=== PATIENT | female | born 1955 | race Caucasian/White ===

== ENCOUNTER → 2019-07-23 13:24 | Outpatient (BNVA) | payer MEDICARE, MEDICAID, SELFPAY | PROVIDERS: Visit Provider Nurse Practitioner Family | DX: E55.9 Vitamin D deficiency, unspecified (principal); R25.2 Cramp and spasm; I10 Essential (primary) hypertension; E11.9 Type 2 diabetes mellitus without complications; R07.9 Chest pain, unspecified; M79.672 Pain in left foot; L84 Corns and callosities; F41.8 Other specified anxiety disorders; E66.9 Obesity, unspecified; F17.200 Nicotine dependence, unspecified, uncomplicated | CPT/HCPCS: 80053; 80061; 82044; 82306; 83036; 83735; 85025 ==

== ENCOUNTER → 2019-11-22 12:30 | Outpatient (BNVA) | payer MEDICARE, MEDICAID, SELFPAY | PROVIDERS: Visit Provider Nurse Practitioner Family | DX: E11.9 Type 2 diabetes mellitus without complications (principal); I10 Essential (primary) hypertension; R10.11 Right upper quadrant pain | CPT/HCPCS: 80053; 80061; 83036; 84443; 85025 ==

== ENCOUNTER → 2019-12-02 13:42 | Outpatient (BNVA) | payer MEDICARE, MEDICAID, SELFPAY | PROVIDERS: PCP Nurse Practitioner Family; Visit Provider Nurse Practitioner Family | DX: R19.5 Other fecal abnormalities (principal) | CPT/HCPCS: 82270 ==

== ENCOUNTER → 2019-12-16 13:20 | Outpatient (BNVA) | payer MEDICARE, MEDICAID, SELFPAY | PROVIDERS: PCP Nurse Practitioner Family; Visit Provider Nurse Practitioner Family | DX: R10.32 Left lower quadrant pain (principal) | CPT/HCPCS: 87506 ==

== ENCOUNTER 2019-12-27 10:19 | Outpatient (CLI) | payer MEDICARE, MEDICAID, SELFPAY ==
--- NOTE | 2019-12-27 10:15 | US_ITS ---
WS: [id number] ULTRASOUND ABDOMEN CLINICAL INFORMATION: generalized abd pain; worse RUQ COMPARISON: None. FINDINGS: Liver Size: Normal. Craniocaudal length: 13.6 cm. Echogenicity: Coarse Surface nodularity: None. Mass (size and location): None. Bile ducts Intrahepatic ducts: Normal. Common bile duct diameter: 0.6 cm. Gallbladder Gallstones Gallstones: Present Gallbladder sludge: None. Gallbladder wall thickening: None. Pericholecystic fluid: None. Sonographic Everett sign: Absent. Pancreas Normal as visualized. Spleen Splenomegaly: None. Craniocaudal length: 11.0 cm. Right kidney: Normal. Hydronephrosis: None. Size: 10.7 cm x 5.2 cm x 5.7 cm Left kidney: Normal. Hydronephrosis: None. Size: 11.3 cm x 5.4 cm x 5.6 cm. Abdominal aorta and IVC Visualized portions are normal. Ascites: None. US/US abdomen complete* [id number] IMPRESSION: 1. Mild diffuse fatty infiltration liver. 2. Cholelithiasis. No gallbladder wall thickening or pericholecystic fluid. 3. Normal common bile duct. 4. No hydronephrosis in either kidney.
== END 2019-12-27 10:20 | disposition home or self-care (01) ==
LOC: RAD 10:24
PROVIDERS: PCP Nurse Practitioner Family; Visit Provider Nurse Practitioner Family
DX: R10.11 Right upper quadrant pain (principal); K76.0 Fatty (change of) liver, not elsewhere classified; K80.20 Calculus of gallbladder without cholecystitis without obstruction
CPT/HCPCS: 76700

== ENCOUNTER 2020-01-07 08:58 | Outpatient (CLI) | payer MEDICARE, MEDICAID, SELFPAY ==
--- NOTE | 2020-01-07 09:05 | NM_ITS ---
WS: [id number] NUCLEAR MEDICINE HIDA SCAN WITH GALLBLADDER EJECTION FRACTION HISTORY: abdominal pain COMPARISON: None available. TECHNIQUE: The patient was intravenously injected with 8.1 mCi of TC99m Mebrofenin. Immediate imaging over the right upper quadrant was followed by 5 minute image and additional images for a total of 60 minutes. Normal uptake of radiotracer throughout the liver. Activity identified in the gallbladder at 20 minutes and well distended by 60 minutes. Activity in the proximal small bowel was seen by 40 minutes. Good washout of the radiotracer from the liver by 60 minutes. The patient then drank 8 ounces of Ensure Plus. Ejection fraction at 60 minutes was 75%. Normal GB ej ection fraction is 35-75%. Post fatty meal symptoms: None. NM/NM hepatobiliary w phar* [id number] IMPRESSION: 1. Normal HIDA scan. 2. Normal gallbladder ejection fraction.
== END 2020-01-07 08:59 | disposition home or self-care (01) ==
LOC: RAD 09:02
PROVIDERS: PCP Nurse Practitioner Family; Visit Provider Nurse Practitioner Family
DX: R10.9 Unspecified abdominal pain (principal)
CPT/HCPCS: 78227; A9537

== ENCOUNTER → 2020-02-16 09:15 | Outpatient (BNVA) | payer MEDICARE, MEDICAID, SELFPAY | PROVIDERS: PCP Nurse Practitioner Family; Visit Provider Nurse Practitioner Family | DX: E11.9 Type 2 diabetes mellitus without complications (principal); R25.2 Cramp and spasm; I10 Essential (primary) hypertension; E55.9 Vitamin D deficiency, unspecified | CPT/HCPCS: 80053; 80061; 82306; 82607; 83036; 83735; 84443; 85025 ==

== ENCOUNTER → 2020-04-10 15:34 | Outpatient (BNVA) | payer MEDICARE, MEDICAID, SELFPAY | PROVIDERS: PCP Nurse Practitioner Family; Visit Provider Surgery | DX: Z11.59 Encounter for screening for other viral diseases (principal); R10.9 Unspecified abdominal pain; K92.1 Melena | CPT/HCPCS: 87635 ==

== ENCOUNTER 2020-04-13 08:00 | Day surgery (SDC) | payer MEDICARE, MEDICAID, SELFPAY ==
[2020-04-11 13:03] VITALS: BMI 51.7
--- NOTE | 2020-04-13 08:06 | W.PM.OPSUD ---
Surgery/Procedure H&P Update DATE OF PROCEDURE: April 13, 2020 DATE H&P PERFORMED: 03/28/20 H&P UPDATE INFORMATION: I have reviewed H&P completed within last 30 days, I have examined patient prior to procedure and No changes to prior documentation PLANNED PROCEDURE: Operation Date: 04/13/20 09:00 Proposed Procedures p EGD/Colon 61725 20593 K92.2(Not Applicable) - Madhav Billingsley MD s Colonoscopy(Not Applicable) - Madhav Billingsley MD
[2020-04-13 08:19] VITALS: BP 151/70; PULSE 49; RESP 18; TEMP 36.6; O2SAT 94
--- NOTE | 2020-04-13 08:27 | ECG_ITS ---
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 Measurements Intervals [place] Rate: 46 P: OK: -1 QRS: 25 QRSD: 94 T: 35 QT: 443 QTc: 387 Interpretive Statements SINUS BRADYCARDIA LOW QRS VOLTAGE IN PRECORDIAL LEADS [QRS DEFLECTION < 1.0 mV IN CHEST LEADS] No previous ECG available for comparison Electronically Signed On 04-14-2020 20:07:43 PILOT SUBMERSIBLE by Krystian Guerrier M.D. [id number]
--- NOTE | 2020-04-13 08:33 | P.ANESASSM_ITS ---
Pre-Anesthetic Assessment Pre-Anesthetic Assessment: Height/Weight: Height 1.57 m Weight 128.367 kg Temp Pulse Resp BP Pulse Ox 97.9 F 49 L 18 151/70 94 04/13/20 08:19 04/13/20 08:19 04/13/20 08:19 04/13/20 08:19 04/13/20 08:19 Preop Diagnosis: llq pain Proposed Procedure: Operation Date: 04/13/20 09:00 Proposed Procedures p EGD/Colon 54293 08991 K92.2(Not Applicable) - aMdhav Billingsley MD s Colonoscopy(Not Applicable) - Madhav Billingsley MD Familial anesthetic complications: None Was Beta Tatianna taken within 24 hours: N/A Last intake: Intake Last Liquid Date 04/12/20 Last Liquid Time 17:00 Last Solid Date 04/11/20 Last Solid Time 16:00 Social: Social History: Tobacco and No alcohol Exam: Pre-Anes Outpt Exam: alert, oriented x 3, clear to auscultation bilaterally and regular rate & rhythm Airway: Cervical ROM: WNL MP: 2 Dentition: False Pulmonary: Pulmonary: COPD CV/HEM: CV/HEM: Angina (Stable) and HTN Comments: Slow HR, takes metoprolol, states she has no symptoms like dizziness, syncope, sob, no hypotension Metabolic: Metabolic: DM, Hyperlipidemia and Morbid obesity Anesthetic Plan: ASA status: 3 Anesthesia: MAC Risk of > 500 ml blood loss (7ml/kg in children): No PFSH Anesthesia PFSH: Medical History (Updated 03/28/20 @ 17:35 by Madhav Billingsley MD) Anxiety with depression Cholelithiasis Chronic knee pain COPD (chronic obstructive pulmonary disease) GERD (gastroesophageal reflux disease) Hypertension Obesity Osteoarthritis Vitamin D deficiency Surgical History Hx of tubal ligation Family History Family/Other Diabetes Mother Cancer Father Suicide Denies family history of Anesthesia complication Bleeding disorder Social History Smoking and tobacco status: current every day smoker cigarettes Packs smoked per day: 2 Years cigarettes smoked: 42 [ Other cigarette details: started s moking at age 11 ] Alcohol intake: current Alcohol intake frequency: 0-2 Drinks per Day Lives independently: Yes Household members: none Marital status: Single Current occupational status: disabled History of recent travel: No Current gender identity: Female Data Anesthesia Cardiac Studies: No Data to Display
--- NOTE | 2020-04-13 08:40 | P.ANESASSM_ITS ---
Pre-Anesthetic Assessment Pre-Anesthetic Assessment: Height/Weight: Height 1.57 m Weight 128.367 kg Temp Pulse Resp BP Pulse Ox 97.9 F 49 L 18 151/70 94 04/13/20 08:19 04/13/20 08:19 04/13/20 08:19 04/13/20 08:19 04/13/20 08:19 Preop Diagnosis: llq pain Proposed Procedure: Operation Date: 04/13/20 09:00 Proposed Procedures p EGD/Colon 45042 87883 K92.2(Not Applicable) - Madhav Billingsley MD s Colonoscopy(Not Applicable) - Madhav Billingsley MD Familial anesthetic complications: None Was Beta Tatianna taken within 24 hours: Yes Last intake: Intake Last Liquid Date 04/12/20 Last Liquid Time 17:00 Last Solid Date 04/11/20 Last Solid Time 16:00 Social: Social History: Tobacco and No alcohol Exam: Pre-Anes Outpt Exam: alert, oriented x 3, clear to auscultation bilaterally and regular rate & rhythm Airway: Cervical ROM: WNL MP: 2 Dentition: False Pulmonary: Pulmonary: COPD CV/HEM: CV/HEM: HTN Comments: bradycardia, takes metoprolol, states she has no symptoms GI: GI: GERD Metabolic: Metabolic: DM, Hyperlipidemia and Morbid obesity Anesthetic Plan: ASA status: 3 Anesthesia: MAC Risk of > 500 ml blood loss (7ml/kg in children): No PFSH Anesthesia PFSH: Medical History (Updated 03/28/20 @ 17:35 by Madhav Billingsley MD) Anxiety with depression Cholelithiasis Chronic knee pain COPD (chronic obstructive pulmonary disease) GERD (gastroesophageal reflux disease) Hypertension Obesity Osteoarthritis Vitamin D deficiency Surgical History Hx of tubal ligation Family History Family/Other Diabetes Mother Cancer Father Suicide Denies family history of Anesthesia complication Bleeding disorder Social History Smoking and tobacco status: current every day smoker cigarettes Packs smoked per day: 2 Years cigarettes smoked: 42 [ Other cigarette details: started smo tati at age 11 ] Alcohol intake: current Alcohol intake frequency: 0-2 Drinks per Day Lives independently: Yes Household members: none Marital status: Single Current occupational status: disabled History of recent travel: No Current gender identity: Female Data Anesthesia Cardiac Studies: No Data to Display
[2020-04-13] MEDS: sodium chloride 0.9% 1,000 ML 30 ML IV (09:07)
[2020-04-13 09:08] LABS: Glucose Point of Care 122 mg/dL (70-110)
[2020-04-13 09:44] VITALS: BP 148/95; PULSE 77; RESP 18; TEMP 36.4; O2SAT 92
--- NOTE | 2020-04-13 20:14 | ANE.PACU2 ---
Inpatient post-anesthesia follow up: Airway intact: Yes Vital signs: Temperature 97.6 F Pulse Rate 77 Respiratory Rate 18 Blood Pressure 148/95 Pulse Oximetry 92 Oxygen Delivery Me thod Room Air Oxygen Flow Rate Fraction of Inspir ed Oxygen Hydration adequate: Yes Nausea and vomiting: No Pain level: 2 Mental status: Baseline
== END 2020-04-13 10:17 | disposition home or self-care (01) ==
PROVIDERS: PCP Nurse Practitioner Family; Visit Provider Surgery
PROC: 0DJ08ZZ Inspection of Upper Intestinal Tract, Via Natural or Artificial Opening Endoscopic (ICD-10-PCS; CPT 43235; principal; 2020-04-13 09:00)
PROC: 0DJD8ZZ Inspection of Lower Intestinal Tract, Via Natural or Artificial Opening Endoscopic (ICD-10-PCS; CPT 45378; 2020-04-13 09:00)
DX: R10.32 Left lower quadrant pain (principal); K31.9 Disease of stomach and duodenum, unspecified; D12.4 Benign neoplasm of descending colon; D12.3 Benign neoplasm of transverse colon; K62.1 Rectal polyp; K57.30 Diverticulosis of large intestine without perforation or abscess without bleeding; K64.8 Other hemorrhoids; K29.70 Gastritis, unspecified, without bleeding; J44.9 Chronic obstructive pulmonary disease, unspecified; I10 Essential (primary) hypertension; R00.1 Bradycardia, unspecified; E11.8 Type 2 diabetes mellitus with unspecified complications; E78.5 Hyperlipidemia, unspecified; E66.01 Morbid (severe) obesity due to excess calories; Z68.43 Body mass index [BMI] 50.0-59.9, adult; F17.210 Nicotine dependence, cigarettes, uncomplicated; Z80.9 Family history of malignant neoplasm, unspecified; K21.9 Gastro-esophageal reflux disease without esophagitis; Z79.84 Long term (current) use of oral hypoglycemic drugs; E55.9 Vitamin D deficiency, unspecified; F41.8 Other specified anxiety disorders; K80.20 Calculus of gallbladder without cholecystitis without obstruction
CPT/HCPCS: 12345; 36416; 43239; 45380; 45385; 82962; 88305; 93005; J2704; J3490; J7030

== ENCOUNTER → 2020-08-30 11:40 | Outpatient (BNVA) | payer MEDICARE, MEDICAID, SELFPAY | PROVIDERS: PCP Nurse Practitioner Family; Visit Provider Nurse Practitioner Family | DX: E55.9 Vitamin D deficiency, unspecified (principal); E11.9 Type 2 diabetes mellitus without complications | CPT/HCPCS: 80053; 80061; 82306; 82607; 83036; 83735; 84443; 85025 ==

== ENCOUNTER → 2020-08-31 16:29 | Outpatient (BNVA) | payer MEDICARE, MEDICAID, SELFPAY | PROVIDERS: PCP Nurse Practitioner Family; Visit Provider Nurse Practitioner Family | DX: E11.9 Type 2 diabetes mellitus without complications (principal) | CPT/HCPCS: 82043 ==

== ENCOUNTER 2020-11-24 14:14 | Observation (INO) | payer MEDICARE, MEDICAID, SELFPAY ==
[2020-11-24] VITALS (11 sets, daily range): BP systolic 122–154; BP diastolic 60–88; PULSE 71–104; RESP 16–20; TEMP 36.4–36.9; O2SAT 90–98; BMI 50.5
--- NOTE | 2020-11-24 14:56 | XR_ITS ---
WS: [id number] Portable AP upright chest, 11/24/2020 Clinical Data: SOB Comparison: Portable chest, 06/30/2014. Findings: No nodules, masses or effusions are seen. The heart is normal. The pulmonary vascularity is not increased. No pneumonia or pneumothorax is seen. The aortic arch shows mild tortuosity. Monitor leads are on the chest wall. XR/XR chest 1V portable [id number] Impression: Atherosclerosis.
[2020-11-24 15:24] LABS: Basophils % 0.5 %; Eosinophils % 0.2 %; Hematocrit 46.9 % (37.0-47.0); Hemoglobin 15.9 g/dL (11.5-15.3); Lymphocytes # 1.5 10^3/uL (0.8-4.8); Lymphocytes % 16.5 %; Mean Corpuscular HGB Conc 33.9 g/dL (30.0-36.0); Mean Corpuscular Hemoglobin 32.4 pg (28.0-34.0); Mean Corpuscular Volume 95.7 fL (81-99); Mean Platelet Volume 9.4 fL (7.4-10.4); Monocytes # 0.8 10^3/uL (0.2-0.9); Monocytes % 8.7 %; Neutrophils # 6.51 10^3/uL (1.8-7.7); Neutrophils % 73.5 %; Nucleated Red Blood Cells % 0 %; Platelet Count 235 10^3/cmm (130-400); Red Cell Distribution Width 12.4 % (12.1-15.1); White Blood Count 8.9 10^3/uL (4.0-10.0)
[2020-11-24 15:32] LABS: Lactic Sepsis W/Reflex 1.6 mmol/L (0.5-2.2)
[2020-11-24 15:40] LABS: D Dimer <= 0.27 ug/mIFEU (0-0.59)
[2020-11-24 15:41] LABS: Alanine Aminotransferase 16 U/L (0-33); Albumin Level 4.2 g/dL (3.5-5.2); Alkaline Phosphatase 83 IU/L (35-105); Anion Gap 17.7 (5-19); Aspartate Amino Transferase 16 U/L (0-32); Blood Urea Nitrogen 12 mg/dL (8-23); Calcium 9.4 mg/dL (8.5-10.5); Carbon Dioxide 26 mmol/L (22-29); Chloride 90 mmol/L (98-107); Globulin 3.3 g/dL (1.3-4.6); Glucose 152 mg/dL (65-115); NT Pro B Type Natriuretic Pept 227 pg/mL (0-125); Osmolality Calculated 273 mOsm/kg (285-295); Potassium 3.7 mmol/L (3.5-5.1); Sodium 130 mmol/L (136-145); Total Bilirubin 0.3 mg/dL (0.15-1.2); Total Protein 7.5 g/dL (6.6-8.7)
[2020-11-24] MEDS: ipratropium-albuterol 3 mL Neb INHALATION ×2 (16:05→21:15)
[2020-11-24 16:18] LABS: Influenza A by IFA Negative (Negative); Influenza B by IFA Negative (Negative); SARS Covid-2 Antigen Negative (Negative)
[2020-11-24 16:23] LABS: ABG PCO2 44.2 mmHg (35-45); Arterial Blood Gas Hematocrit 50.4 % (37-47); Blood Gas Allen Test Pos; Blood Gas Operator Identificat ED; Blood Gas Sample Site Radial, right; Blood Gas Sample Type Arterial; HCO3 ABG 27.4 mmol/L (22-26); Oxygen Device NC; PO2 ABG 60.5 mmHg (80.0-100.0)
--- NOTE | 2020-11-24 17:11 | CTR_ITS ---
PROCEDURE INFORMATION: Exam: CTA Chest With Contrast Exam date and time: 11/24/2020 5:11 PM Age: 65 years old Clinical indication: Cough and shortness of breath; Cough with hemorrhage; Patient HX: SOB and coughing p blood; Additional info: Hemoptysis TECHNIQUE: Imaging protocol: Computed tomographic angiography of the chest with contrast. 3D rendering (Not supervised by radiologist): MIP and/or 3D reconstructed images were created by the technologist. Total images: 879 Radiation optimization: All CT scans at this facility use at least one of these dose optimization techniques: automated exposure control; mA and/or kV adjustment per patient size (includes targeted exams where dose is matched to clinical indication); or iterative reconstruction. Contrast material: OMNI 350; Contrast volume: 66 ml; Contrast route: INTRAVENOUS (IV); COMPARISON: CR XR chest 1V portable [id number] 11/24/2020 3:05 PM RADIATION DOSE METRICS: Total DLP (mGy-cm): 549.76 FINDINGS: Pulmonary arteries: No visible evidence of pulmonary embolism/pulmonary arterial thrombus. Aorta: The thoracic aorta is nonaneurysmal. No visible intimal flap or dissection. Mild arteriosclerosis. Bovine aortic arch which is a normal anatomical variant. Lungs: No visible active interstitial or alveolar airspace disease. Minimal parenchymal scarring left lower lobe. Pleural spaces: Unremarkable. No pneumothorax. No pleural effusion. Heart: Coronary artery disease. No cardiomegaly. No visible pericardial effusion. Lymph nodes: No visible active mediastinal or hilar lymphadenopathy. Bones/joints: No visible active or acute osseous pathology. Degenerative disease and degenerative disc disease of the spine with spondylosis deformans. Soft tissues: Unremarkable. Other findings: Marked obesity. Increased quantum mottle artifact which degrades image quality in detail assessment. CT/CT angio chest PE protcl [id number] IMPRESSION: 1. No visible evidence of pulmonary embolism/pulmonary arterial thrombus. 2. Coronary artery disease. Radiation Dose CTDIVOL = (mGy): DLP = 549.76 (mGy-cm)
[2020-11-24] MEDS: levofloxacin-dextrose 5 % 750 MG/150 ML PREMIX 100 MG IV (17:17)
--- NOTE | 2020-11-24 17:30 | ED_ITS ---
HPI - SOB/Dyspnea General: Chief Complaint: Shortness of Breath/Dyspnea Stated Complaint: sob/ coughing blood Time Seen by Provider: 11/24/20 14:27 Source: patient Mode of arrival: EMS Limitations: no limitations History of Present Illness: HPI Narrative: Patient is a 65-year-old female with a history of COPD who currently still smokes 2 packs of cigarettes daily. She presents to the emergency department with cough and shortness of breath that has been ongoing for about 3 days. Today when she coughed she noticed blood in her sputum and so her family was concerned and asked her to come into the emergency department to be seen. She states that several people in her family have had bronchitis and she thinks that is what is going on with her. She had a low-grade fever at home. No nausea or vomiting. No chest pain. No dizziness. She does feel some rattling in her lungs. MD elicited complaint: shortness of breath and cough Pertinent past history: COPD Onset (ago): day(s) (3) Timing: constant Severity: moderate Exacerbating factors: nothing Relieving factors: oxygen Known history of: COPD Associated symptoms: Reports chest congestion and cough; Deny abdominal pain, chest pain, diaphoresis, dizziness, extremity pain, hemoptysis, lightheadedness, myalgias, nausea, orthopnea, palpitations, paresthesias, polydipsia, polyuria, rash, sense of impending doom, syncope or vomiting Treatment prior to arrival: oxygen Review of Systems General: Reports: 10 or more systems reviewed and unremarkable except in HPI and below Const: Denies: diaphoresis Card: Denies: chest pain, palpitations, lightheadedness, syncope or orthopnea Resp: Reports: chest congestion; Denies: hemoptysis GI: Denies: abdominal pain, nausea or vomiting Musc: Denies: extremity pain Neuro: Denies: dizziness Endo: Denies: polyuria or polydipsia PFSH ED PFSH: Medical History (Reviewed 11/24/20 @ 23:56 by Rosalind Santos MD, [facility] [place] Anxiety with depression Cholelithiasis Chronic knee pain COPD (chronic obstructive pulmonary disease) GERD (gastroesophageal reflux disease) Hypertension Obesity Osteoarthritis Vitamin D deficiency Surgical History (Reviewed 11/24/20 @ 23:56 by Rosalind Santos MD, [facility] [place]) H/O esophagogastroduodenoscopy (04/13/20) Hx of tubal ligation Status post colonoscopy with polypectomy repeat due 04/2025 Family History (Reviewed 11/24/20 @ 23:56 by Rosalind Santos MD, [facility] [place]) Family/Other Diabetes Mother Cancer Father Suicide Denies family history of Anesthesia complication Bleeding disorder Social History (Reviewed 11/24/20 @ 23:56 by Rosalind Santos MD, [facility] [place]) Smoking and tobacco status: current every day smoker cigarettes Packs smoked per day: 2 Years cigarettes smoked: 42 [ Other cigarette details: started smoking at age 11 ] Alcohol intake: current Alcohol intake frequency: 0-2 Drinks per Day Lives independently: Yes Household members: none Marital status: Single Current occupational status: disabled History of recent travel: No Current gender identity: Female Physical Exam Const: COMMON NORMALS: no acute distress, average body habitus, patient oriented x3, no limitations, healthy appearing, alert and well nourished HENMT: COMMON NORMALS: normocephalic, atraumatic and moist oral mucous membranes HEAD & SCALP: normocephalic and atraumatic Neck/C-Spine: COMMON NORMALS: no meningeal signs and no JVD Resp: COMMON NORMALS: normal respiratory effort, No retractions, No use of accessory muscles and percussion normal AUSCULTATION: rhonchi, wheezes and diminished lung sounds PERCUSSION: percussion normal Cardio: COMMON NORMALS: no JVD, regular rate, regular rhythm, S1 normal heart sound present, S2 normal heart sound present, No gallops present (Cardio), No clicks present (Cardio), No murmurs present (Cardio), No rub (Cardio) and Peripheral pulses 2+ throughout RATE: regular rate RHYTHM: regular rhythm HEART SOUNDS: S1 normal heart sound present and S2 normal heart sound present PERIPHERAL PULSES: Peripheral pulses 2+ throughout GI: COMMON NORMALS: Normal to inspection, nondistended, normoactive bowel sounds present, Soft to palpation, non-tender, No hepatosplenomegaly present, no masses and no bruits PALPATION: Yes Soft to palpation and Yes No hepatosplenomegaly present Extremity: COMMON NORMALS: normal to inspection, full ROM, capillary refill normal, no calf tenderness and no pedal edema Neuro: COMMON NORMALS: patient oriented x3 SENSORIUM/ORIENTATION: Yes alert MENINGEAL SIGNS: Yes no meningeal signs Procedures EJ/Peripheral Line Arm L: Time Out Performed: Yes Skin Cleansed in Sterile Fashion: Yes Size (gauge): 20 IV Secured and Dressing Applied: Yes Patient Tolerated Procedure: well Additional Comments: Nursing staff had difficulty placing an IV in this patient. I performed an ultrasound-guided peripheral IV placed a 20-gauge in her left AC space. Course Reevaluation(s): Reevaluation #1: Discussed her lab and imaging findings with her. Explained that she will likely benefit from hospital admission since she is requiring oxygen and has never needed oxygen before. She will be managed as a case of COPD exacerbation. She voiced understanding and is in agreement with the plan. Time: 16:20 Consultations: Consultation #1: Discussed the patient with Dr. Mathur, hospitalist and he kindly accepted the patient to his service. Time: 16:25 Vital Signs: Vital signs: Vital Signs Temperature 98.4 F 11/24/20 23:45 Pulse Rate 80 11/24/20 23:45 Respiratory Rate 18 11/24/20 23:45 Blood Pressure 154/83 11/24/20 23:45 Pulse Oximetry 95 11/24/20 23:45 MDM - SOB/Dyspnea MDM Narrative: Medical decision making narrative: 65-year-old female patient who presents to the emergency department with signs and symptoms consistent with a COPD exacerbation. She was hypoxic and required oxygen to maintain her saturations. She is admitted to the hospital service for further evaluation and management. Medical Records: Attestation: I reviewed the patient's medical records. Lab Data: Attestation: I reviewed the patient's lab results. Labs: Lab Results 11/24/20 11/24/20 11/24/20 Range/Units 15:00 15:00 15:05 WBC 8.9 (4.0-10.0) 10^3/ uL RBC 4.90 (4.1-5.3) 10^6/u L Hgb 15.9 H (11.5-15.3) g/dL Hct 46.9 (37.0-47.0) % MCV 95.7 (81-99) fL MCH 32.4 (28.0-34.0) pg MCHC 33.9 (30.0-36.0) g/dL RDW 12.4 (12.1-15.1) % Plt Count 235 (130-400) 10^3/c mm MPV 9.4 (7.4-10.4) fL Neut % (Auto) 73.5 % Lymph % (Auto) 16.5 % [place] % (Auto) 8.7 % Eos % (Auto) 0.2 % Baso % (Auto) 0.5 % Neut # (Auto) 6.51 (1.8-7.7) 10^3/u L Lymph # (Auto) 1.5 (0.8-4.8) 10^3/u L [place] # (Auto) 0.8 (0.2-0.9) 10^3/u L Eos # (Auto) 0.0 (0.0-0.8) 10^3/u L Baso # (Auto) 0.0 (0.0-0.1) 10^3/u L Nucleated RBC % (a uto) 0 % Nucleated RBCs # 0.0 /100WBC D-Dimer (0-0.59) ug/mIFE U Specimen Type Sample Site ABG pH (7.35-7.45) ABG pCO2 (35-45) mmHg ABG pO2 (80.0-100.0) mmH g ABG HCO3 (22-26) mmol/L ABG Base Excess (-2.0-2.0) mmol/ L Jono Test Hematocrit (37-47) % O2 Delivery Device O2 Liters/Min % FiO2 % Pathology Laboratory Aides Teacher ID Sodium (136-145) mmol/L Potassium (3.5-5.1) mmol/L Chloride (98-107) mmol/L Carbon Dioxide (22-29) mmol/L Anion Gap (5-19) BUN (8-23) mg/dL Creatinine (0.5-0.9) mg/dL GFR Calculation (90-130) mL/min Glucose (65-115) mg/dL Calculated Osmolal ity (285-295) mOsm/k g Lactic Acid (0.5-2.2) mmol/L Calcium (8.5-10.5) mg/dL Total Bilirubin (0.15-1.2) mg/dL AST (0-32) U/L ALT (0-33) U/L Alkaline Phosphata se (35-105) IU/L NT-Pro-B Natriuret Pep (0-125) pg/mL Total Protein (6.6-8.7) g/dL Albumin (3.5-5.2) g/dL Globulin (1.3-4.6) g/dL Influenza Type A A g Negative (Negative) Influenza Type B A g Negative (Negative) SARS-CoV-2 Ag (Rap id) Negative (Negative) 11/24/20 11/24/20 11/24/20 Range/Units 15:05 15:05 15:17 WBC (4.0-10.0) 10^3/ uL RBC (4.1-5.3) 10^6/u L Hgb (11.5-15.3) g/dL Hct (37.0-47.0) % MCV (81-99) fL MCH (28.0-34.0) pg MCHC (30.0-36.0) g/dL RDW (12.1-15.1) % Plt Count (130-400) 10^3/c mm MPV (7.4-10.4) fL Neut % (Auto) % Lymph % (Auto) % [place] % (Auto) % Eos % (Auto) % Baso % (Auto) % Neut # (Auto) (1.8-7.7) 10^3/u L Lymph # (Auto) (0.8-4.8) 10^3/u L [place] # (Auto) (0.2-0.9) 10^3/u L Eos # (Auto) (0.0-0.8) 10^3/u L Baso # (Auto) (0.0-0.1) 10^3/u L Nucleated RBC % (a uto) % Nucleated RBCs # /100WBC D-Dimer <= 0.27 (0-0.59) ug/mIFE U Specimen Type Sample Site ABG pH (7.35-7.45) ABG pCO2 (35-45) mmHg ABG pO2 (80.0-100.0) mmH g ABG HCO3 (22-26) mmol/L ABG Base Excess (-2.0-2.0) mmol/ L Jono Test Hematocrit (37-47) % O2 Delivery Device O2 Liters/Min % FiO2 % Pathology Laboratory Aides Teacher ID Sodium 130 L (136-145) mmol/L Potassium 3.7 (3.5-5.1) mmol/L Chloride 90 L (98-107) mmol/L Carbon Dioxide 26 (22-29) mmol/L Anion Gap 17.7 (5-19) BUN 12 (8-23) mg/dL Creatinine 0.6 (0.5-0.9) mg/dL GFR Calculation 100.0 (90-130) mL/min Glucose 152 H (65-115) mg/dL Calculated Osmolal ity 273 L (285-295) mOsm/k g Lactic Acid 1.6 (0.5-2.2) mmol/L Calcium 9.4 (8.5-10.5) mg/dL Total Bilirubin 0.3 (0.15-1.2) mg/dL AST 16 (0-32) U/L ALT 16 (0-33) U/L Alkaline Phosphata se 83 (35-105) IU/L NT-Pro-B Natriuret Pep 227 H (0-125) pg/mL Total Protein 7.5 (6.6-8.7) g/dL Albumin 4.2 (3.5-5.2) g/dL Globulin 3.3 (1.3-4.6) g/dL Influenza Type A A g (Negative) Influenza Type B A g (Negative) SARS-CoV-2 Ag (Rap id) (Negative) 11/24/20 Range/Units 16:13 WBC (4.0-10.0) 10^3/ uL RBC (4.1-5.3) 10^6/u L Hgb (11.5-15.3) g/dL Hct (37.0-47.0) % MCV (81-99) fL MCH (28.0-34.0) pg MCHC (30.0-36.0) g/dL RDW (12.1-15.1) % Plt Count (130-400) 10^3/c mm MPV (7.4-10.4) fL Neut % (Auto) % Lymph % (Auto) % [place] % (Auto) % Eos % (Auto) % Baso % (Auto) % Neut # (Auto) (1.8-7.7) 10^3/u L Lymph # (Auto) (0.8-4.8) 10^3/u L [place] # (Auto) (0.2-0.9) 10^3/u L Eos # (Auto) (0.0-0.8) 10^3/u L Baso # (Auto) (0.0-0.1) 10^3/u L Nucleated RBC % (a uto) % Nucleated RBCs # /100WBC D-Dimer (0-0.59) ug/mIFE U Specimen Type Arterial Sample Site Radial, right ABG pH 7.40 (7.35-7.45) ABG pCO2 44.2 (35-45) mmHg ABG pO2 60.5 L (80.0-100.0) mmH g ABG HCO3 27.4 H (22-26) mmol/L ABG Base Excess 2.0 (-2.0-2.0) mmol/ L Jono Test Pos Hematocrit 50.4 H (37-47) % O2 Delivery Device Nc O2 Liters/Min 2.0 % FiO2 28.0 % Pathology Laboratory Aides Teacher ID Ed Sodium (136-145) mmol/L Potassium (3.5-5.1) mmol/L Chloride (98-107) mmol/L Carbon Dioxide (22-29) mmol/L Anion Gap (5-19) BUN (8-23) mg/dL Creatinine (0.5-0.9) mg/dL GFR Calculation (90-130) mL/min Glucose (65-115) mg/dL Calculated Osmolal ity (285-295) mOsm/k g Lactic Acid (0.5-2.2) mmol/L Calcium (8.5-10.5) mg/dL Total Bilirubin (0.15-1.2) mg/dL AST (0-32) U/L ALT (0-33) U/L Alkaline Phosphata se (35-105) IU/L NT-Pro-B Natriuret Pep (0-125) pg/mL Total Protein (6.6-8.7) g/dL Albumin (3.5-5.2) g/dL Globulin (1.3-4.6) g/dL Influenza Type A A g (Negative) Influenza Type B A g (Negative) SARS-CoV-2 Ag (Rap id) (Negative) Imaging Data^: CTA Chest: Attestation: I personally reviewed and interpreted this imaging study as follows: Radiologist's impression: [facility] [facility], [place] [address]OV Scan ReportSigned Patient: Flavia Zaldivar #: [id number]: 5Acct#:[id number]/ Sex: 65 / FADM Date: 11/24/20Loc: [facility]/Bed: 262-1Attending Dr: Meri Mathur MD Ordering Provider/Ordering MD: Rosalind Santos MD, [facility] [place] Date of Service: 11/24/20 Procedure(s): CT angio chest PE protcl [id number] Accession Number(s): [id number] Report Number: [id number] PROCEDURE INFORMATION: Exam: CTA Chest With Contrast Exam date and time: 11/24/2020 5:11 PM Age: 65 years old Clinical indication: Cough and shortness of breath; Cough with hemorrhage; Patient HX: SOB and coughing p blood; Additional info: Hemoptysis TECHNIQUE: Imaging protocol: Computed tomographic angiography of the chest with contrast. 3D rendering (Not supervised by radiologist): MIP and/or 3D reconstructed images were created by the technologist. Total images: 879 Radiation optimization: All CT scans at this facility use at least one of these dose optimization techniques: automated exposure control; mA and/or kV adjustment per patient size (includes targeted exams where dose is matched to clinical indication); or iterative reconstruction. Contrast material: OMNI 350; Contrast volume: 66 ml; Contrast route: INTRAVENOUS (IV); COMPARISON: CR XR chest 1V portable [id number] 11/24/2020 3:05 PM RADIATION DOSE METRICS: Total DLP (mGy-cm): 549.76 FINDINGS: Pulmonary arteries: No visible evidence of pulmonary embolism/pulmonary arterial thrombus. Aorta: The thoracic aorta is nonaneurysmal. No visible intimal flap or dissection. Mild arteriosclerosis. Bovine aortic arch which is a normal anatomical variant. Lungs: No visible active interstitial or alveolar airspace disease. Minimal parenchymal scarring left lower lobe. Pleural spaces: Unremarkable. No pneumothorax. No pleural effusion. Heart: Coronary artery disease. No cardiomegaly. No visible pericardial effusion. Lymph nodes: No visible active mediastinal or hilar lymphadenopathy. Bones/joints: No visible active or acute osseous pathology. Degenerative disease and degenerative disc disease of the spine with spondylosis deformans. Soft tissues: Unremarkable. Other findings: Marked obesity. Increased quantum mottle artifact which degrades image quality in detail assessment. CT/CT angio chest PE protcl [id number] IMPRESSION: 1. No visible evidence of pulmonary embolism/pulmonary arterial thrombus. 2. Coronary artery disease. Radiation Dose CTDIVOL = (mGy): DLP = 549.76 (mGy-cm) Dictated By:Ellen Moore By:Ellen Moore Date/Time:11/24/20 1800DD/ 58 CXR: Attestation: I personally reviewed and interpreted this imaging study as follows: Radiologist's impression: silver [address], [place] [address]UCaz ReportSigned Patient: Flavia Zaldivar #: [id number]: 5Acct#:[id number]/Sex: 65 / FADM Date: 11/24/20Loc: [facility]/Bed:Attending Dr: Ordering Provider/Ordering MD: Rosalind Santos MD, [facility] [place] [place] Date of Service: 11/24/20 Procedure(s): XR chest 1V portable [id number] Accession Number(s): [id number] Report Number: [id number] WS: [id number] Portable AP upright chest, 11/24/2020 Clinical Data: SOB Comparison: Portable chest, 06/30/2014. Findings: No nodules, masses or effusions are seen. The heart is normal. The pulmonary vascularity is not increased. No pneumonia or pneumothorax is seen. The aortic arch shows mild tortuosity. Monitor leads are on the chest wall. XR/XR chest 1V portable [id number] Impression: Atherosclerosis. Dictated By:Elizabeth Castrejon MDSigned By:Elizabeth Castrejon MDSigned Date/Time:11/24/20 1517DD/ 151 Discharge Plan Discharge Patient Disposition: Admitted As Inpatient Admit Provider: Meri Mathur Clinical Impression: Acute exacerbation of chronic obstructive airways disease, Hypoxia Condition: Stable Coding Level of Care Code ED Cell Operation Supervisor for Chg Rashel
--- NOTE | 2020-11-24 17:40 | PM.HP ---
Providers/Chief Complaint Admitting Physician: Meri Mathur Primary Care Provider: LIBBY Ayala Chief Complaint: sob/ coughing blood History of Present Illness 65-year-old with a past medical history significant for morbid obesity, hypertension, diabetes mellitus and chronic obstructive pulmonary disease who is presenting with 3 day history of progressively worsening respiratory distress. Patient stated that she was not able to sleep as she was having coughing fits which were keeping her awake. Denies any fever or chills. Does have a productive nature to the cough however this was chronic white frothy in appearance. She did however mention today that she had 2 episodes of hemoptysis which prompted the ER visit. Imaging studies with a chest x-ray which did not show any evidence acute abnormality.CT angio of chest was which not show any evidence of pulmonary embolism. Noted to have coronary artery disease however.Patient was started on nebulizer treatment Solu-Medrol. Require supplemental oxygen. Review of Systems General: Reports: 10 or more systems reviewed and unremarkable except in HPI and below Medications/Allergies Home Medications Medication Instructions Recorded Confirmed Last Taken Type albuterol sulfate 90 mcg/actuation 2 puff INHALATION Q6H PRN 07/23/19 11/24/20 Unknown History aerosol inhaler cholecalciferol (vitamin D3) 25 1,000 unit PO DAILY 07/23/19 11/24/20 11/24/20 History mcg (1,000 unit) tablet omega-3 fatty acids 1,000 mg 1,000 mg PO DAILY 07/23/19 11/24/20 11/24/20 History capsule blood sugar diagnostic #50 each 11/22/19 11/24/20 Unknown Rx blood-glucose meter #1 each 11/22/19 11/24/20 Unknown Rx magnesium oxide 400 mg PO DAILY #90 tab 06/14/20 11/24/20 11/24/20 Rx amlodipine 10 mg tablet 10 mg PO DAILY #90 tab 08/30/20 11/24/20 11/24/20 Rx citalopram 20 mg tablet 20 mg PO DAILY #90 tab 08/30/20 11/24/20 11/24/20 Rx hydrochlorothiazide 25 mg tablet 25 mg PO DAILY #90 tab 08/30/20 11/24/20 11/24/20 Rx pantoprazole 40 mg tablet,delayed 40 mg PO DAILY 90 Days #90 tab 04/11/24/20 11/24/20 Rx release Diabetic Shoes #1 ea 10/20/20 11/24/20 Unknown Rx vitamin B complex 1 tab PO DAILY 10/20/20 11/24/20 11/24/20 History diabetic shoes and inserts #1 ea 11/15/20 11/24/20 Unknown Rx cetirizine 10 mg PO DAILY 11/24/20 11/24/20 11/24/20 History metformin 500 mg PO BID 11/24/20 11/24/20 11/24/20 History metoprolol tartrate 50 mg PO BID 11/24/20 11/24/20 Unknown History potassium chloride 20 meq PO DAILY 11/24/20 11/24/20 11/24/20 History rosuvastatin 10 mg PO DAILY 11/24/20 11/24/20 11/23/20 History Allergies Allergy/AdvReac Type Severity Reaction Status Date / Time latex Allergy Mild rash Verified 11/15/20 09:54 lisinopril Allergy ALGY-Anaphy Verified 11/15/20 09:54 laxis Penicillins Allergy Unknown Verified 11/15/20 09:54 Sulfa (Sulfonamide Allergy ADR-Vomitin Verified 11/15/20 09:54 Antibiotics) g PFSH Acute PFSH: Medical History Anxiety with depression Cholelithiasis Chronic knee pain COPD (chronic obstructive pulmonary disease) GERD (gastroesophageal reflux disease) Hypertension Obesity Osteoarthritis Vitamin D deficiency Surgical History H/O esophagogastroduodenoscopy (04/13/20) Hx of tubal ligation Status post colonoscopy with polypectomy repeat due 04/2025 Family History Family/Other Diabetes Mother Cancer Father Suicide Denies family history of Anesthesia complication Bleeding disorder Social History Smoking and tobacco status: current every day smoker cigarettes Packs smoked per day: 2 Years cigarettes smoked: 42 [ Other cigarette details: started smoking at age 11 ] Alcohol intake: current Alcohol intake frequency: 0-2 Drinks per Day Lives independently: Yes Household members: none Marital status: Single Current occupational status: disabled History of recent travel: No Current gender identity: Female Vitals/I&O/Wt Last Vital Signs Temp 97.6 F 11/24/20 14:24 Pulse 83 11/24/20 16:15 Resp 17 11/24/20 16:05 BP 122/66 11/24/20 15:39 Pulse Ox 90 11/24/20 16:05 Weight last 48 hrs Weight 129.274 kg Physical Exam Narrative: EXAM NARRATIVE: General -alert awake and oriented HENT-grossly unremarkable CVS- regular rate rhythm Chest- decreased air entry bilaterally with mild wheeze Abdomen-soft nontender nondistended Extremities-no edema Data : 11/24/20 15:05 11/24/20 15:05 A&P Assessment and plan (1) COPD exacerbation: Status: Acute COPD exacerbation DuoNeb treatments q.6 hours Solu-Medrol 40 mg IV Q 12 Monitor for hemoptysis May consider pulmonary consult Levaquin 750 mg IV daily Procal in am Diabetes Mellitus Sliding scale insulin A1c in am Tobacco Abuse Nicotine patch DVT ppx Attestations Medical Necessity Statement*: anticipate less than 2 midnight stay in hospital for eval and treatment Time Spent in Patient Care: Greater than 35 minutes (>than 50% of time spent in counselling and/or direct pt care on unit). Coding Level of Care Code Acute Electrical Assembly Technician for Chirag Kiser Diagnoses COPD exacerbation J44.1
[2020-11-24] MEDS: iohexol 350 mg/mL 100 mL Btl IV (17:42)
[2020-11-24 18:46] LABS: Glucose Point of Care 214 mg/dL (70-110)
--- NOTE | 2020-11-24 19:31 | PC.NURSE ---
Report to Alice DERAS at bedside at this time.
[2020-11-24 20:04] LABS: Glucose Point of Care 213 mg/dL (70-110)
[2020-11-24] MEDS: metoprolol tartrate 25 mg Tablet PO (20:17)
[2020-11-25] VITALS (16 sets, daily range): BP systolic 118–141; BP diastolic 73–82; PULSE 73–104; RESP 16–20; TEMP 36.6–37.2; O2SAT 90–95
[2020-11-25] MEDS: ipratropium-albuterol 3 mL Neb INHALATION ×4 (03:22→20:55)
[2020-11-25] MEDS: acetaminophen 325 mg Tablet 650 MG PO (05:57)
[2020-11-25] MEDS: nicotine 21 mg Patch 1 PATCH TRANSDERMA (05:59)
[2020-11-25 06:36] LABS: Basophils % 0.3 %; Hematocrit 45.2 % (37.0-47.0); Hemoglobin 15.2 g/dL (11.5-15.3); Lymphocytes # 1.3 10^3/uL (0.8-4.8); Lymphocytes % 19.7 %; Mean Corpuscular HGB Conc 33.6 g/dL (30.0-36.0); Mean Corpuscular Hemoglobin 31.9 pg (28.0-34.0); Mean Corpuscular Volume 94.8 fL (81-99); Mean Platelet Volume 9.6 fL (7.4-10.4); Monocytes # 0.2 10^3/uL (0.2-0.9); Monocytes % 2.3 %; Neutrophils # 4.98 10^3/uL (1.8-7.7); Neutrophils % 76.8 %; Nucleated Red Blood Cells % 0 %; Platelet Count 246 10^3/cmm (130-400); Red Blood Count 4.77 10^6/uL (4.1-5.3); Red Cell Distribution Width 12.1 % (12.1-15.1); White Blood Count 6.5 10^3/uL (4.0-10.0)
[2020-11-25 07:01] LABS: Glucose Point of Care 195 mg/dL (70-110)
[2020-11-25 07:35] LABS: Alanine Aminotransferase 17 U/L (0-33); Albumin Level 3.9 g/dL (3.5-5.2); Alkaline Phosphatase 76 IU/L (35-105); Anion Gap 16.8 (5-19); Aspartate Amino Transferase 16 U/L (0-32); Blood Urea Nitrogen 13 mg/dL (8-23); Calcium 9.1 mg/dL (8.5-10.5); Carbon Dioxide 24 mmol/L (22-29); Chloride 92 mmol/L (98-107); Globulin 3.3 g/dL (1.3-4.6); Glomerular Filtration Rate 123.4 mL/min (90-130); Glucose 186 mg/dL (65-115); Magnesium 1.8 mg/dL (1.7-2.3); Osmolality Calculated 273 mOsm/kg (285-295); Potassium 3.8 mmol/L (3.5-5.1); Sodium 129 mmol/L (136-145); Thyroid Stimulating Hormone 0.99 uIU/mL (0.27-4.20); Total Bilirubin 0.3 mg/dL (0.15-1.2); Total Protein 7.2 g/dL (6.6-8.7)
[2020-11-25] MEDS: citalopram 20 mg Tablet PO (08:19)
[2020-11-25] MEDS: pantoprazole DR 40 mg Tablet PO (08:19)
[2020-11-25] MEDS: atorvastatin 40 mg Tablet PO (08:19)
[2020-11-25] MEDS: metoprolol tartrate 25 mg Tablet PO ×2 (08:19→21:07)
[2020-11-25 11:01] LABS: Glucose Point of Care 213 mg/dL (70-110)
--- NOTE | 2020-11-25 16:41 | PM.PN ---
Subjective Subjective: Interval history: Patient noted improvement in respiratory status of a did have 2 episodes of hemoptysis. Medications: Reviewed: Yes Vitals/I&O/Wt Last Vital Signs Temp 98.1 F 11/25/20 15:34 Pulse 87 11/25/20 15:54 Resp 17 11/25/20 15:46 BP 141/82 11/25/20 15:34 Pulse Ox 91 11/25/20 15:46 11/25/20 11/25/20 11/25/20 06:59 14:59 22:59 Intake Total 120 / 390 520 / 520 Balance 120 / 390 520 / 520 Weight last 48 hrs Weight 129.274 kg Physical Exam Narrative: EXAM NARRATIVE: General -alert awake and oriented HENT-grossly unremarkable CVS- regular rate rhythm Chest- decreased air entry bilaterally with mild wheeze Abdomen-soft nontender nondistended Extremities-no edema Data : 11/25/20 05:51 11/25/20 05:51 A&P Assessment and plan (1) COPD exacerbation: Status: Acute COPD exacerbation DuoNeb treatments q.6 hours Solu-Medrol 40 mg IV Q 12 Monitor for hemoptysis Outpatient pulmonary consult Levaquin 750 mg IV daily Home O2 eval a discharge CTA Chest - No PE or evidence of malignancy Hyponatremia Due to HCTZ Will d/c Hypertension Resume norvasc Hold HCTZ Diabetes Mellitus Sliding scale insulin Tobacco Abuse Nicotine patch DVT ppx SCds Attestations Medical Necessity Statement*: Require furtherHospitalization for management of COPD exacerbation Time Spent in Patient Care: Greater than 35 minutes (>than 50% of time spent in counselling and/or direct pt care on unit). Coding Level of Care Code Acute Drafter Mechanical for Chirag Kiser Diagnoses COPD exacerbation J44.1
[2020-11-25 16:54] LABS: Glucose Point of Care 204 mg/dL (70-110)
[2020-11-25] MEDS: amlodipine 10 mg Tablet PO (17:24)
[2020-11-25 20:29] LABS: Glucose Point of Care 172 mg/dL (70-110)
[2020-11-25] MEDS: HYDROcodone-acetaminophen 5-325 mg Tablet 1 TAB PO (20:54)
[2020-11-25] MEDS: levofloxacin-dextrose 5 % 750 MG/150 ML PREMIX 100 MG IV (21:08)
[2020-11-26] VITALS (13 sets, daily range): BP systolic 116–136; BP diastolic 69–79; PULSE 69–80; RESP 16–20; TEMP 36.6–36.9; O2SAT 87–95
[2020-11-26] MEDS: ipratropium-albuterol 3 mL Neb INHALATION ×3 (02:59→14:56)
[2020-11-26 06:35] LABS: Glucose Point of Care 171 mg/dL (70-110)
[2020-11-26] MEDS: amlodipine 10 mg Tablet PO (08:20)
[2020-11-26] MEDS: atorvastatin 40 mg Tablet PO (08:20)
[2020-11-26] MEDS: citalopram 20 mg Tablet PO (08:20)
[2020-11-26] MEDS: metoprolol tartrate 25 mg Tablet PO (08:20)
[2020-11-26] MEDS: pantoprazole DR 40 mg Tablet PO (08:21)
[2020-11-26] MEDS: nicotine 21 mg Patch 1 PATCH TRANSDERMA (08:26)
[2020-11-26 11:11] LABS: Glucose Point of Care 189 mg/dL (70-110)
--- NOTE | 2020-11-26 13:17 | PM.DCS ---
Discharge Providers Date of Admission: 11/24/20 16:35 Date of Discharge: November 26, 2020 Attending Provider at Admission: Meri Mathur Attending Provider at Discharge: Meri Mathur Primary Care Provider: LIBBY Ayala Diagnoses at Discharge Discharge Diagnosis (1) COPD exacerbation: Status: Acute Reason for Visit Reason for Visit: sob/ coughing blood Hospital Course Hospital Course 65-year-old with a past medical history significant for morbid obesity, hypertension, diabetes mellitus and chronic obstructive pulmonary disease who is presenting with 3 day history of progressively worsening respiratory distress. Patient stated that she was not able to sleep as she was having coughing fits which were keeping her awake. Denies any fever or chills. Does have a productive nature to the cough however this was chronic white frothy in appearance. She did however mention today that she had 2 episodes of hemoptysis which prompted the ER visit. Imaging studies with a chest x-ray which did not show any evidence acute abnormality.CT angio of chest was which not show any evidence of pulmonary embolism. Noted to have coronary artery disease however.Patient was started on nebulizer treatment Solu-Medrol. Admission to the hospital patient was continued on scheduled nebulized treatments, IV steroids and antibiotics. She noted significant improvement. Hemoptysis has resolved. Additionally patient was noted to have hyponatremia which was likely due to hydrochlorothiazide. This was held at the time of discharge.Home O2 eval prior to discharge qualified patient. She was requiring 2 L with exertion. This was arranged for her at the time of discharge. Follow-up with Pulmonary Medicine was also request. Patient was counseled on smoking cessation. Physical Exam Narrative: EXAM NARRATIVE: General -alert awake and oriented HENT-grossly unremarkable CVS- regular rate rhythm Chest- Clear to auscultation, no retraction intermittent expiratory wheezing -improved Abdomen-soft nontender nondistended Extremities-no edema Discharge Data Data Completed and Pending: Completed Studies During Hospitalization Category Date Time Status CT angio chest PE protcl 58664 Stat Cat Scan 11/24/20 17:11 Completed XR chest 1V anika ble [id number] Urgent Exams 11/24/20 14:56 Completed Labs from last 24 hours 11/26/20 11/26/20 11/25/20 10:55 06:32 20:15 POC Glucose 189 H 171 H 172 H 11/25/20 16:43 POC Glucose 204 H Vitals: Last Vital Signs Temp 98.2 F 11/26/20 08:00 Pulse 76 11/26/20 09:07 Resp 18 11/26/20 08:59 BP 136/79 11/26/20 08:00 Pulse Ox 94 11/26/20 11:45 Discharge Plan Discharge Patient Disposition: Home Condition: Stable Prescriptions: New nicotine 21 mg/24 hr Patch 24 Hour 1 patch transdermal DAILY PRN (Reason: nicot) Qty: 30 RF: 0 metoprolol tartrate 25 mg Tablet 25 mg PO BID@0900,2100 Qty: 60 RF: 0 prednisone 20 mg tablet 40 mg PO DAILY 3 Days Qty: 6 RF: 0 ipratropium-albuterol 0.5 mg-3 mg(2.5 mg base)/3 mL Solution For Nebulization 3 ml inhalation Q6H.RESPIRATORY PRN (Reason: Dyspnea) Qty: 1 RF: 0 Continued omega-3 fatty acids [Fish Oil Concentrate] 1,000 mg capsule 1,000 mg PO DAILY RF: 0 cholecalciferol (vitamin D3) 25 mcg (1,000 unit) tablet 1,000 unit PO DAILY RF: 0 (DME) blood sugar diagnostic [Blood Glucose Test] Strip See Rx Instructions .ROUTE .MEDSUPPLY Qty: 50 RF: 0 (DME) blood-glucose meter Kit See Rx Instructions .ROUTE .MEDSUPPLY Qty: 1 RF: 0 amlodipine 10 mg tablet 10 mg PO DAILY Qty: 90 RF: 1 citalopram [Celexa] 20 mg tablet 20 mg PO DAILY Qty: 90 RF: 1 vitamin B complex [B Complex-Vitamin B12] Tablet 1 tab PO DAILY RF: 0 (DME) Diabetic Shoes See Rx Instructions .ROUTE .MEDSUPPLY Qty: 1 RF: 0 (DME) diabetic shoes and inserts See Rx Instructions .Route .MEDSUPPLY Qty: 1 RF: 0 magnesium oxide 400 mg magnesium tablet 400 mg PO DAILY Qty: 90 RF: 1 Protonix 40 mg tablet,delayed release (DR/EC) 40 mg PO DAILY 90 Days Qty: 90 RF: 1 metformin 500 mg tablet 500 mg PO BID RF: 0 cetirizine 10 mg tablet 10 mg PO DAILY RF: 0 rosuvastatin 10 mg tablet 10 mg PO DAILY RF: 0 Ventolin HFA 90 mcg/actuation HFA aerosol inhaler 2 puff INHALATION Q6H PRN (Reason: Shortness Of Breath) Qty: 1 RF: 0 Discontinued hydrochlorothiazide 25 mg tablet 25 mg PO DAILY Qty: 90 RF: 1 metoprolol tartrate 50 mg tablet 50 mg PO BID RF: 0 potassium chloride 20 mEq tablet extended release 20 meq PO DAILY RF: 0 Discharge Orders: Discharge Order (Routine); Ordered 11/26/20 Ordered By: Meri Mathur Other Ambulatory Orders: DME: Nebulizer with Neb Kit (Order) Location: None Selected Ordered By: Meri Mathur DME: Oxygen (Order) Location: None Selected Ordered By: Meri Mathur DME: Oxygen (Order) Location: None Selected Ordered By: Meri Mathur Referrals: Isis Diggs FNP [Primary Care Provider] - 4-7 days Cata Luis MD [Physician] - 1 week Discharge Diet: Cardiac Discharge Activity: Increase activity as tolerated Patient Instructions: COPD, How to Stop Smoking (DC), COPD Stoplight, Using Oxygen at Home Activity Restrictions/Additional Instructions: Call your local [facility] office or the [facility] in [facility] to explore choices for IHS. [phone]. Please rescue inhaler if not able to access nebulizer. Discharge Attestations Time Spent in Discharge Care*: greater than 30 min Specific Discharge Activities: educating patient, educating and/or supporting family/caregiver, discussing with rehabilitation caseworker/social workers/dc planners, documenting/other paperwork and evaluating patient/reviewing data Status at Discharge: Cognitive status at discharge: cognitively intact, Behavioral status at discharge: cooperative, Functional status at discharge: independent ambulation Overall status at discharge: patient is progressing back to baseline Quality Metrics Clinical Quality Measures During this hospital stay, did patient experience: None Coding Level of Care Code Acute Chg DC note Diagnoses COPD exacerbation J44.1
--- NOTE | 2020-11-26 14:13 | PC.CHAP ---
Pastoral Care Encounter/Spiritual Assessment Type of Contact [] Declined ornamental metal worker helper visit [] Patient/Family/Request visit [] Outpatient visit [] Follow-up visit [] Physician referral [] Code/Alert [XX] Routine visit [] Staff referral [] Actively dying [] Patient sleeping [] Family support [] [] Out of room [] Palliative care [] [XX] Receiving care in room [] Pre-surgical visit [] Trauma [] Long length of stay [] ICU visit [] Other: Relational/Emotional Strength [] Patient feels connected with others/family/visitors/staff [] Distress [] Loneliness/isolation [] Abandonment Spirituality of Patient [] Person of Marilee [] Attends Samaritan of their Marilee [] Believes in Prayer [] Reads Bible or Pentecostalism materials [] There are Spiritual issues to be addressed Cigar Wrapper Tender Automatic Interventions [] Prayer [] Active listening [] Non-anxious presence [] Spiritual/emotional support [] Crisis/trauma care [] Spiritual counseling [] Bereavement support [] Provided bereavement packet [] Provided Bible/devotional materials [] Provided toy/stuffed animal, coloring book to patient or family member [] Provided Communion [] Anointing/[place] [] Salvation [] Completed spiritual assessment [] Other: Impact on Illness or Injury [] Angry [] Fearful [] Anxious [] Often cries [] Exhaustion [] Unable to work [] Unable to attend orthodoxy [] Unable to walk/stand [] Unable to read [] Unable to drive [] Unable to eat/drink [] Unable to sleep [] Unable to be with family [] Patient intubated [] Other: Summary Time spent with patient
--- NOTE | 2020-11-27 15:00 | PC.RESP ---
SMOKING CESSATION AND PULMONARY REHAB INFORMATION SENT TO PATIENT.
== END 2020-11-26 15:50 | disposition home or self-care (01) ==
LOC: ER 15:18 → MEDSURG 18:14
PROVIDERS: Admitting Provider Hospitalist; Emergency Provider Family Medicine; PCP Nurse Practitioner Family; Visit Provider Hospitalist
DX: J44.1 Chronic obstructive pulmonary disease with (acute) exacerbation (principal); I10 Essential (primary) hypertension; M19.90 Unspecified osteoarthritis, unspecified site; E55.9 Vitamin D deficiency, unspecified; E66.9 Obesity, unspecified; Z68.43 Body mass index [BMI] 50.0-59.9, adult; Z83.3 Family history of diabetes mellitus; F17.210 Nicotine dependence, cigarettes, uncomplicated
CPT/HCPCS: 36415; 36416; 36600; 71045; 71275; 80053; 82803; 82962; 83605; 83735; 83880; 84443; 85025; 85378; 87426; 87804; 94640; 96365; 96367; 96372; 96375; 99285; G0378; J1815; J1956; J2920; J2930; Q9967

== ENCOUNTER → 2020-12-08 10:29 | Outpatient (BNVA) | payer MEDICARE, MEDICAID, SELFPAY | PROVIDERS: PCP Nurse Practitioner Family; Visit Provider Internal Medicine Critical Care Medicine | DX: Z20.822 Contact with and (suspected) exposure to COVID-19 (principal); Z11.52 Encounter for screening for COVID-19 | CPT/HCPCS: 87635 ==

== ENCOUNTER 2020-12-13 10:05 | Outpatient (CLI) | payer MEDICARE, MEDICAID, SELFPAY ==
--- NOTE | 2020-12-13 13:54 | PFTS_ITS ---
Date of Study:12/13/20 Date of Dictation: MECHANICS: Forced vital capacity (FVC) is reduced. Forced expiratory volume in one second (FEV1) is normal. FEV1/FVC is normal. FLOW VOLUME LOOP: Normal. LUNG VOLUMES: Total lung capacity (TLC) is normal. Residual volume (RV) is increased. DIFFUSING CAPACITY FOR CARBON MONOXIDE: Normal. INTERPRETATION: The pulmonary function tests are consistent with nonspecific ventilatory limitation. The postbronchodilator spirometry is consistent with mild restriction however the lung volumes are not consistent with restrictive lung disease. There is no significant postbronchodilator response. The patient likely has a combination of obstructive and restrictive lung disease. Lung volumes are consistent with air trapping. Gas exchange (DLCO) is normal. MTDD
== END 2020-12-13 10:06 | disposition home or self-care (01) ==
PROVIDERS: PCP Nurse Practitioner Family; Visit Provider Internal Medicine Critical Care Medicine
DX: J44.9 Chronic obstructive pulmonary disease, unspecified (principal)
CPT/HCPCS: 94060; 94726; 94729; J7611

== ENCOUNTER → 2021-01-17 08:25 | Outpatient (BNVA) | payer MEDICARE, MEDICAID, SELFPAY | PROVIDERS: PCP Nurse Practitioner Family; Visit Provider Nurse Practitioner Family | DX: Z20.822 Contact with and (suspected) exposure to COVID-19 (principal); R43.0 Anosmia | CPT/HCPCS: 87635 ==

== ENCOUNTER → 2021-03-26 09:59 | Outpatient (BNVA) | payer MEDICARE, MEDICAID, SELFPAY | PROVIDERS: PCP Nurse Practitioner Family; Visit Provider Nurse Practitioner Family | DX: M25.512 Pain in left shoulder (principal); I10 Essential (primary) hypertension; E11.9 Type 2 diabetes mellitus without complications; E55.9 Vitamin D deficiency, unspecified | CPT/HCPCS: 73030; 80053; 80061; 82306; 82607; 83036; 83735; 84443; 85025 ==

== ENCOUNTER 2021-04-13 13:38 | Emergency (ER) | payer MEDICARE, MEDICAID, SELFPAY ==
[2021-04-13 14:20] VITALS: BP 166/83; PULSE 70; RESP 18; TEMP 36.8; O2SAT 96; BMI 54.8
--- NOTE | 2021-04-13 14:55 | XR_ITS ---
WS: [id number] Right foot, 3 views, 04/13/2021 Clinical Data: injury with pain when ambulating Comparison: None. Findings: No fractures or dislocations are seen. There is a large bunion at the head of the right first metatar aramis.The right first through third toes show lateral deviation. The soft tissues are normal. XR/XR foot RT min 3V* [id number] Impression: 1. Large bunion at head of the right first metatarsal. 2. Lateral deviation of the first through third toes of the right foot.
--- NOTE | 2021-04-13 14:55 | W.ED.EXTPRO ---
HPI - Extremity Problem General: Chief complaint: Extremity Injury, Lower Stated complaint: right foot pain Time Seen by Provider: 04/13/21 14:27 History of Present Illness: HPI Narrative: Patient is a 65-year-old female comes to the ED with right foot pain. Patient says this morning she was having some pain in her right foot ambulating which was mild. A couple hours prior to arrival patient stood up from her chair and felt a couple pops in her right foot and is now having intense pain in right foot when ambulating. She says it hard for her to bear any weight on her right foot. When not weightbearing at rest patient says she has no pain. Associated symptoms: Deny chest pain, fever(s) or rash Review of Systems Const: Denies: fever(s), chills or fatigue Eyes: Denies: change in vision or eye discomfort ENMT: Denies: throat pain, odynophagia, nasal discharge or nasal congestion Card: Denies: chest pain, palpitations, edema, swelling of feet/ankles, dyspnea on exertion or orthopnea Resp: Denies: dyspnea, productive cough or non-productive cough GI: Denies: abdominal pain, nausea, vomiting, diarrhea, constipation or hematochezia : Denies: flank pain, dysuria or hematuria Musc: Reports: extremity pain (right foot); Denies: neck pain, back pain or extremity swelling Skin/Breast: Denies: rash or new lesions Neuro: Denies: headache(s), numbness in extremities or weakness in extremities PFSH ED PFSH: Medical History Anxiety with depression Cholelithiasis Chronic knee pain COPD (chronic obstructive pulmonary disease) GERD (gastroesophageal reflux disease) Hypertension Obesity Osteoarthritis Vitamin D deficiency Surgical History H/O esophagogastroduodenoscopy (04/13/20) Hx of tubal ligation Status post colonoscopy with polypectomy repeat due 04/2025 Family History Family/Other Diabetes Mother Cancer Father Suicide Denies family history of Anesthesia complication Bleeding disorder Social History Quit status (tobacco): has quit using tobacco Year quit tobacco: 2020 Former quit date comment: 2 PPD x 53 Years Second hand smoke exposure: No Smoking risk assessment/counseling performed?: No Alcohol intake: current Alcohol intake frequency: 0-2 Drinks per Day Counseling given: No Counseling given: No Lives independently: Yes Household members: none Marital status: Single Current occupational status: disabled History of recent travel: No Current gender identity: Female Physical Exam Const: COMMON NORMALS: no acute distress, patient oriented x3 and alert GENERAL APPEARANCE: cooperative and comfortable HENMT: COMMON NORMALS: normocephalic HEAD & SCALP: normocephalic MOUTH: Normal oral and palatal mucosa present THROAT: posterior oropharynx normal and uvula midline Neck/C-Spine: COMMON NORMALS: supple GENERAL: Yes normal visual inspection Resp: COMMON NORMALS: normal respiratory effort, No retractions, No use of accessory muscles and clear to auscultation bilaterally AUSCULTATION: clear to auscultation bilaterally Cardio: COMMON NORMALS: regular rate, regular rhythm, S1 normal heart sound present, S2 normal heart sound present, No gallops present (Cardio), No clicks present (Cardio), No murmurs present (Cardio) and Peripheral pulses 2+ throughout RATE: regular rate RHYTHM: regular rhythm HEART SOUNDS: S1 normal heart sound present and S2 normal heart sound present PERIPHERAL PULSES: Peripheral pulses 2+ throughout GI: COMMON NORMALS: Normal to inspection, nondistended, normoactive bowel sounds present, Soft to palpation, non-tender and no masses PALPATION: Yes Soft to palpation : COMMON NORMALS: Yes no CVA tenderness BLADDER/KIDNEY EXAM: Yes no CVA tenderness Back/Pelvis: COMMON NORMALS: no CVA tenderness Extremity: NARRATIVE EXTREMITY EXAM: Right foot?patient has large bunion at first metatarsal. There is also lateral deviation of first through third toes of the right foot. No erythema, warmth or swelling noted. Nontender to palpation. Neurovascular tact GENERAL: Yes normal exam except as noted Neuro: COMMON NORMALS: patient oriented x3 and moves all extremities SENSORIUM/ORIENTATION: Yes alert Skin: GENERAL SKIN EXAM: dry skin Course Vital Signs: Vital signs: Vital Signs Temperature 98.3 F 04/13/21 14:20 Pulse Rate 70 04/13/21 15:56 Respiratory Rate 16 04/13/21 15:56 Blood Pressure 166/83 04/13/21 15:56 Pulse Oximetry 96 11/12/21 15:56 MDM - Extremity (Nontraumatic) MDM Narrative: Medical decision making narrative: Patient comes to the ED with right foot pain. Patient says any weightbearing causes pain. Injury occurred when she stood up from a chair and felt a pop in her right foot. Vitals stable. Exam shows large bunion at first metatarsal and lateral deviation of first through third toes but no other acute findings. X-ray of right foot showed no acute fractures or findings. Patient has an appointment set up with Dr. Doty in June and I placed order with case management to have appointment moved up if possible for evaluation of acute right foot pain. Return to ED precautions given. Patient understood and agree with plan. Imaging Data^: Xray Ortho: Attestation: I personally reviewed and interpreted this imaging study as follows: Radiologist's impression: [address] [address] XRay Report Signed Patient: Flavia Zaldivar Unit #: [id number] : 1955 Age/Sex: 65 / F ADM Date: 04/13/21 Loc: ER Room/Bed: Attending Dr: Ordering Provider/Ordering MD: Miguel Sigala Date of Service: 04/13/21 Procedure(s): XR foot RT min 3V* [id number] Accession Number(s): [id number] Report Number: [id number] WS: [id number] Right foot, 3 views, 04/13/2021 Clinical Data: injury with pain when ambulating Comparison: None. Findings: No fractures or dislocations are seen. There is a large bunion at the head of the right first metatarsal.The right first through third toes show lateral deviation. The soft tissues are normal. XR/XR foot RT min 3V* [id number] Impression: 1. Large bunion at head of the right first metatarsal. 2. Lateral deviation of the first through third toes of the right foot. Dictated By: Elizabeth Castrejon MD Signed By: Elizabeth Castrejon MD Signed Date/Time: 04/13/211518 DD/ 1517 Discharge Plan Discharge Patient Disposition: Home Clinical Impression: Foot pain, right Condition: Stable Prescriptions: No Action omega-3 fatty acids [Fish Oil Concentrate] 1,000 mg capsule 1,000 mg PO DAILY RF: 0 cholecalciferol (vitamin D3) 25 mcg (1,000 unit) tablet 1,000 unit PO DAILY RF: 0 (DME) blood-glucose meter Kit See Rx Instructions .ROUTE .MEDSUPPLY Qty: 1 RF: 0 ipratropium-albuterol 0.5 mg-3 mg(2.5 mg base)/3 mL solution for nebulization 3 ml inhalation Q4H PRN (Reason: Dyspnea) Qty: 540 RF: 6 vitamin B complex [B Complex-Vitamin B12] Tablet 1 tab PO DAILY RF: 0 (DME) Diabetic Shoes See Rx Instructions .ROUTE .MEDSUPPLY Qty: 1 RF: 0 (DME) diabetic shoes and inserts See Rx Instructions .Route .MEDSUPPLY Qty: 1 RF: 0 Ventolin HFA 90 mcg/actuation HFA aerosol inhaler 2 puff INHALATION Q6H PRN (Reason: Shortness Of Breath) Qty: 8 RF: 0 Protonix 40 mg tablet,delayed release (DR/EC) 40 mg PO BID 90 Days Qty: 180 RF: 0 citalopram [Celexa] 20 mg tablet 30 mg PO DAILY 90 Days Qty: 135 RF: 1 metoprolol tartrate 25 mg tablet 25 mg PO BID@0900,2100 Qty: 180 RF: 1 amlodipine 10 mg tablet 10 mg PO DAILY Qty: 90 RF: 1 cetirizine 10 mg tablet 10 mg PO DAILY Qty: 90 RF: 1 rosuvastatin 10 mg tablet 10 mg PO DAILY Qty: 90 RF: 1 fluticasone propionate [Flonase Allergy Relief] 50 mcg/actuation spray,suspension 2 spray intranasal DAILY Qty: 16 RF: 5 magnesium oxide 400 mg magnesium tablet 400 mg PO DAILY Qty: 90 RF: 1 (DME) Blood Glucose Test Strip See Rx Instructions .ROUTE .MEDSUPPLY Qty: 50 RF: 6 Trelegy Ellipta 100-62.5-25 mcg blister with device 1 inh inhalation DAILY Qty: 60 RF: 3 (DME) shower chair See Rx Instructions .Route .MEDSUPPLY Qty: 1 RF: 0 Discharge Orders: Discharge ED (Routine); Ordered 11/12/21 Ordered By: Miguel Sigala Referrals: Isis Diggs FNP [Primary Care Provider] - Discharge Diet: Regular Discharge Activity: Increase activity as tolerated Activity Restrictions/Additional Instructions: Follow-up with medical provider as directed. Case management should be contacting you in the next several days to get an earlier appointment set up with Dr. Doty. Rest, ice and elevate right foot to help with symptoms. Limit activity and weightbearing for the next couple days to allow for right foot to heal. Continue taking your gdeq-gmy-einapuq ibuprofen as needed for pain and inflammation. Continue taking all home medications as prescribed. Return to the ER or your medical provider if condition worsens. Please read and understand discharge instructions. Thank you for choosing [facility] for your healthcare needs today. Please realize this is an emergency room and that we are providing you with a medical screening exam and this may not be complete and all inclusive of all the testing and or work up that you may need to determine your ailment or severity of your illness. It is very important that you follow up as instructed or that you return to the Emergency Department should you have concerns or if your condition changes or worsens in any way. Coding Level of Care Code ED Director Patient Accounting for Chirag Kiser Exam Comprehensive
[2021-04-13 15:56] VITALS: BP 166/83; PULSE 70; RESP 16; O2SAT 96
[2021-04-13] MEDS: ketorolac 60 mg/2 mL INJ IM (16:08)
--- NOTE | 2021-04-16 14:12 | DCPLANNER ---
data center project manager had message to schedule a follow up appointment for patient with ortho. data center project manager called the ortho clinic, spoke with Bettina, gave clinic patients information. data center project manager was told that patients information would be printed and reviewed. Clinic will call patient with appointment information.
--- NOTE | 2021-04-18 13:50 | DCPLANNER ---
Patient had a follow up appointment scheduled for 04.18.[address] Doty at [facility] - patient did attend appointment.
== END 2021-04-13 16:06 | disposition home or self-care (01) ==
PROVIDERS: Emergency Provider Physician Assistant; PCP Nurse Practitioner Family
DX: M79.671 Pain in right foot (principal); J44.9 Chronic obstructive pulmonary disease, unspecified; I10 Essential (primary) hypertension; Z87.891 Personal history of nicotine dependence
CPT/HCPCS: 73630; 96372; 99283; J1885

== ENCOUNTER → 2021-04-18 13:59 | Outpatient (BNVA) | payer MEDICARE, MEDICAID, SELFPAY | PROVIDERS: PCP Nurse Practitioner Family; Visit Provider Podiatrist Foot & Ankle Surgery | DX: M25.571 Pain in right ankle and joints of right foot (principal) | CPT/HCPCS: 73610 ==

== ENCOUNTER → 2021-05-02 11:27 | Outpatient (BNVA) | payer MEDICARE, MEDICAID, SELFPAY | PROVIDERS: PCP Nurse Practitioner Family; Visit Provider Podiatrist Foot & Ankle Surgery | DX: M25.571 Pain in right ankle and joints of right foot (principal) | CPT/HCPCS: 73610 ==

== ENCOUNTER → 2021-06-13 09:41 | Outpatient (BNVA) | payer MEDICARE, MEDICAID, SELFPAY | PROVIDERS: PCP Nurse Practitioner Family; Visit Provider Podiatrist Foot & Ankle Surgery | DX: S82.891A Other fracture of right lower leg, initial encounter for closed fracture (principal); M79.671 Pain in right foot; X58.XXXA Exposure to other specified factors, initial encounter; M19.071 Primary osteoarthritis, right ankle and foot; Z46.89 Encounter for fitting and adjustment of other specified devices; M25.372 Other instability, left ankle | CPT/HCPCS: 73610; 73630; L1902 ==

== ENCOUNTER 2021-06-13 14:12 | Outpatient (CLI) | payer MEDICARE, MEDICAID, SELFPAY | END 2021-06-13 14:13 | disposition home or self-care (01) | LOC: SPT 14:12 | PROVIDERS: PCP Nurse Practitioner Family; Visit Provider Podiatrist Foot & Ankle Surgery | DX: Z46.89 Encounter for fitting and adjustment of other specified devices (principal); M25.372 Other instability, left ankle | CPT/HCPCS: L1902 ==

== ENCOUNTER → 2021-06-14 10:06 | Outpatient (BNVA) | payer MEDICARE, MEDICAID, SELFPAY | PROVIDERS: PCP Nurse Practitioner Family; Visit Provider Internal Medicine Cardiovascular Disease | DX: I48.91 Unspecified atrial fibrillation (principal); E11.9 Type 2 diabetes mellitus without complications; R05.9 Cough, unspecified | CPT/HCPCS: 80048; 85025; 85610; 87635 ==

== ENCOUNTER → 2021-06-18 09:18 | Outpatient (BNVA) | payer MEDICARE, MEDICAID, SELFPAY | PROVIDERS: PCP Nurse Practitioner Family; Visit Provider Nurse Practitioner Family | DX: E11.9 Type 2 diabetes mellitus without complications (principal); R00.2 Palpitations; E66.9 Obesity, unspecified; M79.89 Other specified soft tissue disorders; R05.9 Cough, unspecified | CPT/HCPCS: 71046; 80053; 80061; 82306; 82607; 83036; 83880; 84443; 85025 ==

== ENCOUNTER 2021-07-31 10:01 | Outpatient (CLI) | payer MEDICARE, MEDICAID, SELFPAY ==
--- NOTE | 2021-07-31 | USCV_ITS ---
Flavia Zaldivar Age: 65 Gender: F : 1955 Exam Date: 07/31/2021 11:02 Ordering Phys: Arabella Schulz MD ([email or web address]) Technologist: ZEYNEP [place] [facility] [place]: ?ef BP: 127 / 77 HR: 68 Rhythm: Sinus Technical Quality: Adequate MEASUREMENTS (Male / Female) Normal Values 2D ECHO LV Diastolic Diameter PLAX 5.2 cm 4.2 - 5.9 / 3.9 - 5.3 cm LV Systolic Diameter PLAX 3.5 cm IVS Diastolic Thickness 1.2 cm 0.6 - 1.0 / 0.6 - 0.9 cm IVS Systolic Thickness 2.4 cm LVPW Diastolic Thickness 1.6 cm 0.6 - 1.0 / 0.6 - 0.9 cm LVPW Systolic Thickness 2.0 cm LVOT Diameter 2.0 cm LV Ejection Fraction 2D Teich 60.7 % LV Ejection Fraction MOD 2C 53.6 % LV Ejection Fraction 2C AL 53.8 % LA Diameter 4.0 cm LA Width 3.2 cm LA Height 4.4 cm RA Width 4.0 cm RA Height 4.4 cm Aorta at Sinotubular Diameter 2.9 cm M-MODE Aortic Annulus Diameter 2.9 cm LA Ao Ratio MM 1.3 MV E Point Septal Separation 0.6 cm DOPPLER AV Peak Velocity 167.0 cm/s LVOT Peak Velocity 104.0 cm/s AV Area Cont Eq vti 2.3 cm squared AV Area Cont Eq pk 2.0 cm squared MV Peak Velocity 98.0 cm/s MV Area PHT 3.5 cm squared Mitral E to A Ratio 0.8 MV E' Velocity 43.5 cm/s Mitral E to MV E' Ratio 7.0 Mitral E to LV E' Lateral Ratio 7.4 Mitral E to LV E' Septal Ratio 6.6 TR Peak Velocity 151.0 cm/s TR Peak Gradient 9.1 mmHg TR Mean Velocity 109.2 cm/s TR Mean Gradient 5.3 mmHg TR Velocity Time Integral 28.7 cm TV Peak E Velocity 43.0 cm/s PV Peak Velocity 135.0 cm/s RV Acceleration Time 0.1 s RV Ejection Time 0.3 s RV AcT/ET 0.2 FINDINGS Left Ventricle Normal left ventricular size and systolic function, EF 56 %. No regional wall motion abnormalities. Mild left ventricular hypertrophy. Grade I/IV diastolic dysfunction (abnormal relaxation filling pattern), normal to mildly elevated filling pressures. Right Ventricle Possibly normal RV size ejection fraction. Right Atrium Possibly of normal size Left Atrium Possibly of normal size Mitral Valve Mild mitral annular calcification. Aortic Valve Aortic valve leaflets cannot be visualized well Tricuspid Valve Tricuspid valve not well visualized. Pulmonic Valve Pulmonic valve not well visualized. Pericardium Normal pericardium without effusion. Aorta Normal aortic annulus size. CONCLUSIONS Normal left ventricular size and systolic function, EF 56 %. No gross wall motion abnormalities. Mild left ventricular hypertrophy. Grade I/IV diastolic dysfunction (abnormal relaxation filling pattern), normal to mildly elevated filling pressures. Possibly normal cardiac chamber sizes Mild mitral annular calcification. There is no pericardial effusion. There are no intracardiac masses. Technically difficult study because of poor apical windows Dr Arabella Schulz MD [facility] (Electronically Signed) Final Date: 01 August 2021 09:24 S
--- NOTE | 2021-07-31 10:21 | USCV_ITS ---
Flavia Zaldivar Age: 65 Gender: F : 1955 Exam Date: 07/31/2021 10:50 Ordering Phys: Arabella Schulz MD ([email or web address]) Technologist: ZEYNEP [place]am [place] [facility] [place]: bilat edema PROCEDURES: The venous duplex Doppler examination of both lower extremities was performed in the standard fashion. The following venous structures were evaluated: common femoral vein, profunda vein, proximal portion of the greater saphenous vein, superficial femoral vein, and the popliteal vein. Bilaterally, the common femoral, superficial femoral, profunda femoral, popliteal, posterior tibial, greater saphenous veins, and the peroneal trunk were identified and interrogated in the standard fashion. These veins were found to be easily compressible with spontaneous blood flow. No evidence of insufficiency or thrombus noted. FINDINGS: Normal 2-D Doppler and augmentation and compressibility throughout the lower extremity venous structures. Additional imaging through the proximal calf veins also reveals no thrombus. Limited evaluation of the greater saphenous vein is patent with no thrombus.. CONCLUSIONS No evidence of DVT in the above-mentioned identifiable veins. Dr Arabella Schulz MD [facility] (Electronically Signed) Final Date: 01 August 2021 09:15 S
== END 2021-07-31 10:02 | disposition home or self-care (01) ==
LOC: RAD 10:06
PROVIDERS: PCP Nurse Practitioner Family; Visit Provider Internal Medicine Cardiovascular Disease
DX: M79.89 Other specified soft tissue disorders (principal); R07.9 Chest pain, unspecified; R06.00 Dyspnea, unspecified; I34.8 Other nonrheumatic mitral valve disorders
CPT/HCPCS: 93306; 93970

== ENCOUNTER → 2021-08-16 11:47 | Outpatient (BNVA) | payer MEDICARE, MEDICAID, SELFPAY | PROVIDERS: PCP Nurse Practitioner Family; Visit Provider Nurse Practitioner Family | DX: R30.0 Dysuria (principal); M25.50 Pain in unspecified joint; R60.9 Edema, unspecified; M25.512 Pain in left shoulder; G89.29 Other chronic pain; I10 Essential (primary) hypertension; E78.5 Hyperlipidemia, unspecified; Z79.899 Other long term (current) drug therapy | CPT/HCPCS: 80053; 81003; 83880; 84439; 84443; 84550; 85025; 85651; 86038; 86140; 86200; 86431 ==

== ENCOUNTER → 2021-08-30 11:06 | Outpatient (BNVA) | payer MEDICARE, MEDICAID, SELFPAY | PROVIDERS: PCP Nurse Practitioner Family; Visit Provider Internal Medicine Critical Care Medicine | DX: J98.4 Other disorders of lung (principal); Z87.891 Personal history of nicotine dependence; J44.9 Chronic obstructive pulmonary disease, unspecified; K21.9 Gastro-esophageal reflux disease without esophagitis; I10 Essential (primary) hypertension | CPT/HCPCS: 99214 ==

== ENCOUNTER → 2021-09-12 10:06 | Outpatient (BNVA) | payer MEDICARE, MEDICAID, SELFPAY | PROVIDERS: PCP Nurse Practitioner Family; Visit Provider Podiatrist Foot & Ankle Surgery | DX: L60.3 Nail dystrophy (principal); E11.21 Type 2 diabetes mellitus with diabetic nephropathy; L84 Corns and callosities; M20.41 Other hammer toe(s) (acquired), right foot; M20.42 Other hammer toe(s) (acquired), left foot; M21.611 Bunion of right foot; M21.612 Bunion of left foot; Z87.891 Personal history of nicotine dependence; R07.89 Other chest pain; R06.02 Shortness of breath; R06.00 Dyspnea, unspecified; M79.89 Other specified soft tissue disorders; I50.33 Acute on chronic diastolic (congestive) heart failure; R55 Syncope and collapse | CPT/HCPCS: 11055; 11721; 80048; 83880; 99214 ==

== ENCOUNTER 2021-09-26 21:51 | Emergency (ER) | payer MEDICARE, MEDICAID, SELFPAY ==
--- NOTE | 2021-09-26 | XRR_ITS ---
Name: JOSHUA CUETO Age: 65Years F Date: 09/26/2021 SSN: [id number] : 1955 Study: XR KNEE 1 OR 2 VIEWS Requesting Physician: SIXTO HELMS Images: 2 Add?l Studies: Provided Clinical History: knee pain PROCEDURE INFORMATION: Exam: XR Left Knee Exam date and time: 09/26/2021 10:11 PM Age: 65 years old Clinical indication: Patient HX: Chronic left knee pain. History of arthritis. TECHNIQUE: Imaging protocol: XR Left knee. Views: 1 or 2 views. COMPARISON: No relevant prior studies available. FINDINGS: Bones/joints: No acute fracture or dislocation. There are degenerative changes of the knee, worst in the medial and patellofemoral compartments. Soft tissues: Normal. IMPRESSION: Degenerative changes of the knee, worst in the medial and patellofemoral compartments. Thank you for allowing us to participate in the care of your patient. Dictated and Authenticated by: Myah Sierra MD 09/26/2021 11:32 PM Central Time ([place] & [place]) ACACIA
[2021-09-26 21:54] VITALS: BP 183/113; PULSE 65; RESP 18; TEMP 36.9; O2SAT 94
--- NOTE | 2021-09-26 21:58 | XRR_ITS ---
PROCEDURE INFORMATION: Exam: XR Right Knee Exam date and time: 09/26/2021 10:09 PM Age: 65 years old Clinical indication: Injury or trauma; Other: Twisting; Sprain or strain; Patella or knee; Right; Patient HX: Patient states twisted RT knee at home. C/O worsening pain. History of arthritis. ; Additional info: Knee pain TECHNIQUE: Imaging protocol: XR Right knee. Views: 1 or 2 views. COMPARISON: No relevant prior studies available. FINDINGS: Bones/joints: No acute fracture or dislocation. There are degenerative changes of the knee, worst in the lateral and patellofemoral compartments. Soft tissues: Normal. Other findings: Suprapatellar joint effusion is noted. XR/XR knee RT 1-2V 43287 IMPRESSION: 1. Degenerative changes of the knee, worst in the lateral and patellofemoral compartments. 2. Joint effusion.
--- NOTE | 2021-09-26 22:09 | W.ED.EXTPRO ---
HPI - Extremity Problem General: Chief complaint: Extremity Injury, Lower Stated complaint: KNEE PAIN Time Seen by Provider: 09/26/21 22:01 History of Present Illness: 65-year-old female comes in today with complaints of pain and discomfort to the right knee. Patient last night had got up and maneuvered around twisting her right knee. Throughout the day the pain is worsened and aggravated worse when she tried to ambulate on it this evening. Patient called for evaluation and treatment for the knee pain. Patient does have a history of arthritis to the knee. Patient appears nontoxic. Patient appears no acute distress. Patient appears in mild pain at rest. Associated symptoms: Deny chest pain, fever(s) or rash Review of Systems General: Reports: 10 or more systems reviewed and unremarkable except in HPI and below Const: Denies: fever(s) Card: Denies: chest pain Resp: Denies: dyspnea Musc: Reports: extremity pain and joint pain Skin/Breast: Denies: rash Neuro: Denies: headache(s) PFS ED PFSH: Medical History Afib Anxiety with depression Bradycardia CAD (coronary artery disease) Cholelithiasis Chronic knee pain COPD (chronic obstructive pulmonary disease) GERD (gastroesophageal reflux disease) Hypertension Obesity Osteoarthritis Parotid gland enlargement surgical removal Peripheral edema Vitamin D deficiency Surgical History H/O esophagogastroduodenoscopy (04/13/20) Hx of tubal ligation Status post colonoscopy with polypectomy repeat due 04/2025 Family History Family/Other Diabetes Suicide Mother Cancer Clotting disorder Father Suicide Grandfather CAD (coronary artery disease) Brother CAD (coronary artery disease) Suicide Sister Diabetes Stroke Denies family history of Dementia Chronic kidney disease (CKD) Anesthesia complication Bleeding disorder Lung disease Social History Smoking and tobacco status: former smoker Quit status (tobacco): has quit using tobacco Year quit tobacco: 2020 Former quit date comment: 2 PPD x 53 Years Second hand smoke exposure: No Smoking risk assessment/counseling performed?: No Alcohol intake: current Alcohol intake frequency: 0-2 Drinks per Day Counseling given: No Counseling given: No Lives independently: Yes Household members: none Marital status: Single Current occupational status: disabled History of recent travel: No Current gender identity: Female Physical Exam Const: COMMON NORMALS: alert HENMT: HEAD & SCALP: normal to inspection Neck/C-Spine: COMMON NORMALS: full ROM GENERAL: Yes normal visual inspection Chest: COMMONS NORMALS: normal inspection of the chest Resp: COMMON NORMALS: clear to auscultation bilaterally AUSCULTATION: clear to auscultation bilaterally Cardio: COMMON NORMALS: regular rate RATE: regular rate GI: COMMON NORMALS: Soft to palpation PALPATION: Yes Soft to palpation Extremity: RIGHT LOWER EXTREMITY: Yes knee joint (Normal range of motion, minimal swelling, increased pain with weightbearing) Right knee: Yes inspection, Yes palpation and Yes ROM Neuro: SENSORIUM/ORIENTATION: Yes alert Psych: COMMON NORMALS: mental status grossly normal and cooperative Skin: COMMON NORMALS: turgor normal GENERAL SKIN EXAM: turgor normal Course Vital Signs: Vital signs: Vital Signs Temperature 98.5 F 09/26/21 21:54 Pulse Rate 65 09/26/21 21:54 Respiratory Rate 18 09/26/21 21:54 Blood Pressure 183/113 09/26/21 21:54 Pulse Oximetry 94 09/26/21 21:54 MDM - Extremity (Nontraumatic) Medical Decision Making 65-year-old female comes in today with right knee pain. On exam patient has good range of motion of the knee, increased pain with weightbearing. Patient has chronic knee problems. Patient reports last night she had twisted and her knee popped and since then had increasing pain throughout the day. Patient was unable to stand on the knee in order to transfer to the [facility] and called EMS for help. Patient easily transferred in the emergency department with minimal assist from nursing staff. Patient is morbidly obese. No significant swelling or bruising is noted to the knee. Differential diagnosis includes meniscal injury, osteoarthritis of the knee, sprain. X-rays noted no fractures but significant joint degeneration is noted. Believe the patient probably has severe joint degeneration with osteoarthritis that is causing her problems. Patient is morbidly obese which is add more to the difficulties of her care. We will arrange for patient have follow-up with orthopedist although she does have an appointment already we will see if patient can have a earlier appointment. Case management was requested for this referral. Patient was given the few hydrocodone for severe pain to be used as needed. Patient can supplement her routine medicines at home with this. We will also do a short trial of Celebrex 100 mg twice a day to see if we can help with her inflammation to the joint. Patient's morbid obesity may impede her recovery and limits her treatment plan. I suggested family talk with marriage and family social worker for home health assistance and possible retirement placement. Discharge Plan Discharge Patient Disposition: Home Clinical Impression: Acute pain of right knee Osteoarthritis Qualifiers: Osteoarthritis location: knee Osteoarthritis type: unspecified Laterality: bilateral Qualified Code(s): M17.0 - Bilateral primary osteoarthritis of knee Condition: Stable Prescriptions: New celecoxib 100 mg capsule 100 mg PO BID Qty: 30 0RF hydrocodone-acetaminophen 5-325 mg tablet 1 tab PO BID PRN (Reason: pain (scale score 7-10)) Qty: 10 0RF No Action omega-3 fatty acids [Fish Oil Concentrate] 1,000 mg capsule 1,000 mg PO DAILY 0RF cholecalciferol (vitamin D3) 25 mcg (1,000 unit) tablet 1,000 unit PO DAILY 0RF (DME) blood-glucose meter Kit See Rx Instructions .ROUTE .MEDSUPPLY Qty: 1 0RF Rx Instructions: check blood sugar daily As directed tramadol 50 mg tablet 50 mg PO TID PRN (Reason: pain) Qty: 30 0RF vitamin B complex [B Complex-Vitamin B12] Tablet 1 tab PO DAILY 0RF (DME) Diabetic Shoes See Rx Instructions .ROUTE .MEDSUPPLY Qty: 1 0RF Rx Instructions: As directed by [employer]- Custom accommodated orthotics with off loading left metatarsal head (DME) diabetic shoes and inserts See Rx Instructions .Route .MEDSUPPLY Qty: 1 0RF Rx Instructions: As directed Ventolin HFA 90 mcg/actuation HFA aerosol inhaler 2 puff INHALATION Q6H PRN (Reason: Shortness Of Breath) Qty: 8 0RF cetirizine 10 mg tablet 10 mg PO DAILY Qty: 90 1RF rosuvastatin 10 mg tablet 10 mg PO DAILY Qty: 90 1RF (DME) ASO to the left See Rx Instructions .Route .MEDSUPPLY Qty: 1 0RF Rx Instructions: As directed (DME) Blood Glucose Test Strip See Rx Instructions .ROUTE .MEDSUPPLY Qty: 50 6RF Rx Instructions: to test BID and prn (DME) shower chair See Rx Instructions .Route .MEDSUPPLY Qty: 1 0RF Rx Instructions: As directed Eliquis 5 mg tablet 5 mg PO BID Qty: 60 5RF Trelegy Ellipta 100-62.5-25 mcg blister with device 1 inh inhalation DAILY Qty: 60 5RF metoprolol succinate 25 mg tablet extended release 24 hr See Rx Instructions .ROUTE .COMPLEX Qty: 30 0RF Dose Instruction: Take 1 tablet by mouth once daily Rx Instructions: Take 1 tablet by mouth once daily furosemide 20 mg tablet 20 mg .ROUTE BID PRN (Reason: edema) Qty: 60 0RF Rx Instructions: 20 mg twice a day PRN; amlodipine 10 mg tablet 10 mg PO DAILY Qty: 90 1RF magnesium oxide 400 mg (241.3 mg magnesium) tablet See Rx Instructions .ROUTE .COMPLEX Qty: 90 0RF Dose Instruction: Take 1 tablet by mouth once daily Rx Instructions: Take 1 tablet by mouth once daily potassium chloride 10 mEq capsule, extended release 20 meq PO DAILY Qty: 30 2RF Rx Instructions: dose change citalopram 20 mg tablet See Rx Instructions .ROUTE .COMPLEX Qty: 135 0RF Dose Instruction: TAKE 1 & 1/2 (ONE & ONE-HALF) TABLETS BY MOUTH ONCE DAILY Rx Instructions: TAKE 1 & 1/2 (ONE & ONE-HALF) TABLETS BY MOUTH ONCE DAILY pantoprazole 40 mg tablet,delayed release (DR/EC) See Rx Instructions .ROUTE .COMPLEX Qty: 180 0RF Dose Instruction: Take 1 tablet by mouth twice daily Rx Instructions: Take 1 tablet by mouth twice daily Discharge Orders: Discharge ED (Routine); Ordered 09/26/21 Ordered By: Elías Cuellar Referrals: Isis Diggs FNP [Primary Care Provider] - Discharge Diet: Usual diet Discharge Activity: Increase activity as tolerated Patient Instructions: Knee Pain (ED), Opioid Safety Activity Restrictions/Additional Instructions: Use walker for assistance with ambulation. Talk with marriage and family social worker tomorrow and consider home health or placement into a retirement facility for further treatment and assistance. Use medications for pain and discomfort. Follow-up with primary care as needed. Case management will contact you regarding follow-up appointment with orthopedist. Coding Level of Care Code ED Software Controls Engineer for Chirag Fwd Exam Comprehensive
--- NOTE | 2021-09-27 08:34 | DCPLANNER ---
Addendum entered by Marialuisa Li 10/26/21 18:29: Patient had a follow up appointment scheduled for 10.10.21 with ortho - patient did attend appointment. Original Note: patient services manager had message to schedule a follow up appointment for patient with ortho. patient services manager sent patients information to the front office staff at ortho. Patients information will be printed and reviewed. Clinic will call patient with appointment information.
== END 2021-09-26 22:58 | disposition home or self-care (01) ==
PROVIDERS: Emergency Provider Nurse Practitioner Family; PCP Nurse Practitioner Family
DX: M17.0 Bilateral primary osteoarthritis of knee (principal); M25.561 Pain in right knee; Z87.891 Personal history of nicotine dependence; Z79.02 Long term (current) use of antithrombotics/antiplatelets
CPT/HCPCS: 73560; 99283

== ENCOUNTER → 2021-10-10 14:34 | Outpatient (BNVA) | payer MEDICARE, MEDICAID, SELFPAY | PROVIDERS: PCP Nurse Practitioner Family; Referring Provider Podiatrist Foot & Ankle Surgery; Visit Provider Orthopaedic Surgery | DX: M17.11 Unilateral primary osteoarthritis, right knee (principal); Z87.891 Personal history of nicotine dependence | CPT/HCPCS: 99213 ==

== ENCOUNTER 2021-11-13 | Outpatient (RCR) | payer MEDICARE, MEDICAID, SELFPAY | END 2021-11-13 23:59 | disposition home or self-care (01) | LOC: TPT | PROVIDERS: PCP Nurse Practitioner Family; Referring Provider Orthopaedic Surgery; Visit Provider Orthopaedic Surgery | DX: M75.02 Adhesive capsulitis of left shoulder (principal) | CPT/HCPCS: 80053; 80061; 83036; 85025 ==

== ENCOUNTER → 2021-11-13 10:28 | Outpatient (BNVA) | payer MEDICARE, MEDICAID, SELFPAY | PROVIDERS: PCP Nurse Practitioner Family; Visit Provider Orthopaedic Surgery | DX: M17.0 Bilateral primary osteoarthritis of knee (principal); M75.02 Adhesive capsulitis of left shoulder | CPT/HCPCS: 99213 ==

== ENCOUNTER 2021-11-26 09:13 | Outpatient (CLI) | payer MEDICARE, MEDICAID, SELFPAY ==
[2021-11-26 09:22] VITALS: BMI 56.5
--- NOTE | 2021-11-26 10:41 | CT_ITS ---
WS: [id number] LDCT LUNG CANCER SCREENING HISTORY: HX OF NICOTINE DEPENDENCE TECHNIQUE: Axial imaging performed from the apices to 1 cm below the costophrenic angles. Coronal and sagittal reformats are submitted with axial MIP series. All CT scans at [facility] use at least one of these dose optimization techniques: automated exposure control; mA and/or kV adjustment per patient size (includes targeted exams where dose is matched to clinical indication); or iterativ e reconstruction. DLP: 48.25 mGy.cm DIvol: Mean CTDIvol: 1.58 (mGy) COMPARISON: 11/24/2020 CT angiogram. Diagnostic quality: Suboptimal due to body habitus. Lung Nodules: No nodules or masses are identified. No central endobronchial lesions. Heart: No significant enlargement. Other findings: None.
--- NOTE | 2021-11-26 10:52 | ECG_ITS ---
[facility] Test Date: 2021-11-26 Pat Name: Flavia Zaldivar Department: Room: Gender: Female Telephone Service Adviser: Kandis Cook : 1955 Requested By: Arabella Schulz Order Number: [id number] Reading MD: Arabella Schulz M.D. Interpretive Statements NAME OF STUDY: LEXISCAN SESTAMIBI STRESS TEST INDICATION: Chest Pressure, PROCEDURE: At the baseline, the EKG revealed normal sinus rhythm with a poor R wave progression. baseline artifact. The baseline blood pressure was 133/88 mm Hg with a heart rate of 75 beats/min. Lexiscan was infused over a period of 20 seconds. A total of 0.4 milligrams of Lexiscan was infused. The stress phase was continued for a total of 5 minutes. Heart rate at the end of the stress phase was 86 with a blood pressure 152/85. The EKG at the peak infusion revealed no significant changes. Sestamibi was injected 20 seconds after the Lexiscan infusion. Blood pressure at the end of the recovery phase was 159/87 with a heart rate of 88 per minute. CONCLUSION: 1. No significant EKG changes with the LexiScan infusion 2. No LexiScan induced chest pain or cardiac arrhythmia 3. Normal blood pressure and heart rate response 4. Sestamibi/sestamibi perfusion scan pending; see separate report. Electronically Signed On 11-27-2021 19:47:56 CDT by Arabella Schulz M.D. [email or web address]
--- NOTE | 2021-11-26 10:52 | NMCV_ITS ---
[facility] [place] perf SPECT r/s* [id number] Flavia Zaldivar Age: 66 Gender: F : 1955 Exam Date: 11/26/2021 10:58 Ordering Phys: Arabella Schulz MD ([email or web address]) Technologist: RONAL Morgan Exam Location: [facility] Indications: SHORTNESS OF BREATH, CHEST PAIN STRESS TEST Please see separate stress test report in [facility] for full findings IMAGE PROTOCOL Rest/Stress 1 Lexiscan Day Radiopharmaceutical Dose (mCi) Administration Site Administered by Rest: Tc-99m 11.0 IV RONAL Zhao Sestamieveline Stress:Tc-99m 33.0 IV RONAL Zhao Sestamibi Rest: 26-Nov-2021 60 Discovery 630 Stress: 26-Nov-2021 30 Discovery 630 0.4mg Lexiscan. Supine position only as patient was unable to lay prone. SPECT RESULTS Technical Quality: Excellent Raw Data Analysis: Normal, Breast attenuation Image Corrections: No attenuation or motion correction applied Summed Stress Score: 11 Summed Rest Score: 9 Summed Difference Score: 2 PERFUSION FINDINGS MICHAEL Schulz MD/ Cardiology moderate area of moderately decreases uptake in the basal and mid anterolateral area, mid inferolateral, mid and apical anterior and apical lateral regions. Subtle area of reversibility was noted in the mid inferolateral and apical lateral regions FUNCTIONAL RESULTS (calculated via Gated SPECT) Stress Image LV EF (%): 69 Stress EDV (mL):91 TID: 1.15 Stress ESV (mL):28 FUNCTIONAL FINDINGS: Segmental wall motion analysis revealing no gross wall motion normalities. IMPRESSIONS 1. Myocardial perfusion imaging revealing moderate area of persistent decreased tracer uptake in the anterior, anterolateral, inferolateral and apical regions with a subtle areas of reversibility suggesting myocardial scarring with a small areas of nova-infarction ischemia in the distribution of the left anterior descending and circumflex arteries. 2. Normal LV ejection fraction of 69%. 3. LV wall motion analysis revealing no gross wall motion abnormalities. 4. Normal LV volume 5. Slightly elevated transient ischemic dilatation ratio may suggest endocardial ischemia. Clinical correlation is recommended Dr Arabella Schulz MD FACC (Electronically Signed) Final Date: 26 November 2021 19:44 S
[2021-11-26 11:51] VITALS: BP 159/87; PULSE 87
[2021-11-26] MEDS: regadenoson 0.4 Mg/5 ml Syringe IVP (11:51)
== END 2021-11-26 09:14 | disposition home or self-care (01) ==
PROVIDERS: PCP Nurse Practitioner Family; Visit Provider Internal Medicine Cardiovascular Disease
DX: R07.89 Other chest pain (principal); R06.02 Shortness of breath
CPT/HCPCS: 71271; 78452; 93017; A9500; J2785

== ENCOUNTER 2021-11-26 12:54 | Outpatient (CLI) | payer MEDICARE, MEDICAID, SELFPAY ==
--- NOTE | 2021-11-26 | CT_ITS ---
WS: [id number] LDCT LUNG CANCER SCREENING HISTORY: HX OF NICOTINE DEPENDENCE TECHNIQUE: Axial imaging performed from the apices to 1 cm below the costophrenic angles. Coronal and sagittal reformats are submitted with axial MIP series. All CT scans at [facility] use at least one of these dose optimization techniques: automated exposure control; mA and/or kV adjustment per patient size (includes targeted exams where dose is matched to clinical indication); or iterativ e reconstruction. DLP: 48.25 mGy.cm DIvol: Mean CTDIvol: 1.58 (mGy) COMPARISON: 11/24/2020 CT angiogram. Diagnostic quality: Suboptimal due to body habitus. Lung Nodules: No nodules or masses are identified. No central endobronchial lesions. Heart: No significant enlargement. Other findings: None. CT/CT lung screening [id number] IMPRESSION: LUNG-RADS: 1-Negative FOLLOW UP: 12 Month: Continue annual screening with LDCT OTHER FINDINGS (S MODIFIER): None. Quality of this examination is significantly compromised by body habitus.
== END 2021-11-26 12:55 | disposition home or self-care (01) ==
PROVIDERS: PCP Nurse Practitioner Family; Visit Provider Internal Medicine Critical Care Medicine
DX: Z87.891 Personal history of nicotine dependence (principal)
CPT/HCPCS: 71271

== ENCOUNTER → 2021-12-07 09:04 | Outpatient (BNVA) | payer MEDICARE, MEDICAID, SELFPAY | PROVIDERS: PCP Nurse Practitioner Family; Visit Provider Internal Medicine Critical Care Medicine | DX: J96.11 Chronic respiratory failure with hypoxia (principal); J98.4 Other disorders of lung; Z87.891 Personal history of nicotine dependence | CPT/HCPCS: 99214 ==

== ENCOUNTER 2021-12-25 13:35 | Outpatient (CLI) | payer MEDICARE, MEDICAID, SELFPAY ==
--- NOTE | 2021-12-25 14:00 | XR_ITS ---
WS: [id number] DEXA (DUAL ENERGY X-RAY ABSORPTIOMETRY) Bone mineral density was performed using a [employer] machine. HISTORY: M19.90 - Unspecified osteoarthritis, unspecified site COMPARISON: None available. Lumbar spine BMD (L1-L4): 1.151 g/cm2 T score: -0.2 Z score: 0.2 Total hip BMD: Left: 0.908 g/cm2. T score: -0.8 Z score: -0.3 Right: 0.879 g/cm2. T score: -1.0 Z score: -0.6 10 year probability of a major osteoporotic fracture is 12.4%. XR/XR DEXA axial skeleton* [id number] IMPRESSION: NORMAL BONE MINERAL DENSITY based upon the WHO classification for females.
== END 2021-12-25 13:36 | disposition home or self-care (01) ==
LOC: RAD 13:35
PROVIDERS: PCP Nurse Practitioner Family; Visit Provider Nurse Practitioner Family
DX: M19.90 Unspecified osteoarthritis, unspecified site (principal); E11.21 Type 2 diabetes mellitus with diabetic nephropathy; L84 Corns and callosities; L60.3 Nail dystrophy; M20.41 Other hammer toe(s) (acquired), right foot; M20.42 Other hammer toe(s) (acquired), left foot; M21.611 Bunion of right foot; M21.612 Bunion of left foot
CPT/HCPCS: 11055; 11721; 77080

== ENCOUNTER → 2022-01-21 13:25 | Outpatient (BNVA) | payer MEDICARE, MEDICAID, SELFPAY | PROVIDERS: PCP Nurse Practitioner Family; Visit Provider Nurse Practitioner Family | DX: M17.11 Unilateral primary osteoarthritis, right knee (principal) | CPT/HCPCS: 73562 ==

== ENCOUNTER → 2022-03-11 09:26 | Outpatient (BNVA) | payer MEDICARE, MEDICAID, SELFPAY | PROVIDERS: PCP Nurse Practitioner Family; Visit Provider Internal Medicine Pulmonary Disease | DX: J96.11 Chronic respiratory failure with hypoxia (principal); J44.9 Chronic obstructive pulmonary disease, unspecified; T78.40XA Allergy, unspecified, initial encounter; J98.4 Other disorders of lung; Z87.891 Personal history of nicotine dependence; E66.01 Morbid (severe) obesity due to excess calories; Z68.43 Body mass index [BMI] 50.0-59.9, adult | CPT/HCPCS: 36415; 82785; 85025; 86003; 99214 ==

== ENCOUNTER → 2022-04-02 09:25 | Outpatient (BNVA) | payer MEDICARE, MEDICAID, SELFPAY | PROVIDERS: PCP Nurse Practitioner Family; Visit Provider Nurse Practitioner Family | DX: I48.91 Unspecified atrial fibrillation (principal); I10 Essential (primary) hypertension; Z87.891 Personal history of nicotine dependence; E11.8 Type 2 diabetes mellitus with unspecified complications; E11.21 Type 2 diabetes mellitus with diabetic nephropathy; L84 Corns and callosities; M20.41 Other hammer toe(s) (acquired), right foot; M21.611 Bunion of right foot; L60.3 Nail dystrophy; M20.42 Other hammer toe(s) (acquired), left foot; M21.612 Bunion of left foot | CPT/HCPCS: 11056; 11721; 99214 ==

== ENCOUNTER → 2022-06-05 15:12 | Outpatient (BNVA) | payer MEDICARE, MEDICAID, SELFPAY | PROVIDERS: PCP Nurse Practitioner Family; Visit Provider Internal Medicine Pulmonary Disease | DX: R60.9 Edema, unspecified (principal) | CPT/HCPCS: 80048; 83735; 83880 ==

== ENCOUNTER → 2022-07-08 09:38 | Outpatient (BNVA) | payer MEDICARE, MEDICAID, SELFPAY | PROVIDERS: PCP Nurse Practitioner Family; Visit Provider Nurse Practitioner Family | DX: E11.9 Type 2 diabetes mellitus without complications (principal); E66.9 Obesity, unspecified | CPT/HCPCS: 80053; 80061; 81003; 82306; 82607; 83036; 83735; 84443; 85025; 87086 ==

== ENCOUNTER → 2022-07-16 10:55 | Outpatient (BNVA) | payer MEDICARE, MEDICAID, SELFPAY | PROVIDERS: PCP Nurse Practitioner Family; Visit Provider Podiatrist Foot & Ankle Surgery | DX: E11.21 Type 2 diabetes mellitus with diabetic nephropathy (principal); E11.8 Type 2 diabetes mellitus with unspecified complications; L84 Corns and callosities; M21.611 Bunion of right foot; M21.612 Bunion of left foot; L60.3 Nail dystrophy; M20.40 Other hammer toe(s) (acquired), unspecified foot | CPT/HCPCS: 11055; 11721 ==

== ENCOUNTER → 2022-09-18 10:39 | Outpatient (BNVA) | payer MEDICARE, MEDICAID, SELFPAY | PROVIDERS: PCP Nurse Practitioner Family; Visit Provider Nurse Practitioner Family | DX: E11.9 Type 2 diabetes mellitus without complications (principal) | CPT/HCPCS: 80053; 80061; 81000; 81003; 82043; 83036; 83735; 84443; 85025; 87086 ==

== ENCOUNTER → 2022-09-23 10:56 | Outpatient (BNVA) | payer MEDICARE, MEDICAID, SELFPAY | PROVIDERS: PCP Nurse Practitioner Family; Visit Provider Nurse Practitioner Family | DX: R31.9 Hematuria, unspecified (principal) | CPT/HCPCS: 81003; 87086 ==

== ENCOUNTER → 2022-10-03 11:33 | Outpatient (BNVA) | payer MEDICARE, MEDICAID, SELFPAY | PROVIDERS: PCP Nurse Practitioner Family; Visit Provider Internal Medicine Cardiovascular Disease | DX: I48.91 Unspecified atrial fibrillation (principal); R60.9 Edema, unspecified; I10 Essential (primary) hypertension; E11.9 Type 2 diabetes mellitus without complications; E66.9 Obesity, unspecified; Z68.43 Body mass index [BMI] 50.0-59.9, adult; Z87.891 Personal history of nicotine dependence; R07.89 Other chest pain; Z79.01 Long term (current) use of anticoagulants | CPT/HCPCS: 99214 ==

== ENCOUNTER → 2022-11-07 10:43 | Outpatient (BNVA) | payer MEDICARE, MEDICAID, SELFPAY | PROVIDERS: PCP Nurse Practitioner Family; Visit Provider Podiatrist Foot & Ankle Surgery | DX: E11.21 Type 2 diabetes mellitus with diabetic nephropathy (principal); L84 Corns and callosities; L60.3 Nail dystrophy; M20.42 Other hammer toe(s) (acquired), left foot; M20.41 Other hammer toe(s) (acquired), right foot; M21.612 Bunion of left foot; M21.611 Bunion of right foot | CPT/HCPCS: 11056; 11721 ==

== ENCOUNTER 2022-12-19 11:46 | Outpatient (CLI) | payer MEDICARE, MEDICAID, SELFPAY ==
--- NOTE | 2022-12-19 12:15 | CT_ITS ---
WS: [id number] LDCT LUNG CANCER SCREENING HISTORY: Z87.891 - Personal history of nicotine dependence TECHNIQUE: Axial imaging performed from the apices to 1 cm below the costophrenic angles. Coronal and sagittal reformats are submitted with axial MIP series. All CT scans at [facility] use at least one of these dose optimization techniques: automated exposure control; mA and/or kV adjustment per patient size (includes targeted exams where dose is matched to clinical indication); or iterativ e reconstruction. DLP: 328.12 mGy.cm DIvol: Mean CTDIvol: 8.90 (mGy) COMPARISON: 11/26/2021 Diagnostic quality: Satisfactory Lungs: No pulmonary nodule or mass. 5 mm LEFT perifissural nodule. Minimally increased in size since 11/24/2020. No additional mass or nodule. Linear bandlike atelectasis at the lung bases. No adenopathy . Heart: Normal size heart with no pericardial effusion.. Moderate coronary artery calcification. Other findings: Mild atherosclerosis aorta. Normal size aorta and pulmonary artery. No adenopathy. Sm all hiatal hernia. Mild bilateral adrenal thickening. Thoracic curvature and diffuse degenerative dis c disease. CT/CT lung screening [id number] IMPRESSION: LUNG-RADS: 2-Benign Appearance or Behavior FOLLOW UP: 12 Month: Continue annual screening with LDCT OTHER FINDINGS (S MODIFIER): None.
== END 2022-12-19 11:47 | disposition home or self-care (01) ==
LOC: RAD 11:48
PROVIDERS: PCP Nurse Practitioner Family; Visit Provider Internal Medicine Pulmonary Disease
DX: Z12.2 Encounter for screening for malignant neoplasm of respiratory organs (principal); Z87.891 Personal history of nicotine dependence
CPT/HCPCS: 71271

== ENCOUNTER 2022-12-23 08:00 | Outpatient (CLI) | payer MEDICARE, MEDICAID, SELFPAY | END 2022-12-23 08:01 | disposition home or self-care (01) | LOC: SLEEP 12-25 07:40 | PROVIDERS: PCP Nurse Practitioner Family; Visit Provider Internal Medicine Pulmonary Disease | DX: J44.9 Chronic obstructive pulmonary disease, unspecified (principal); J98.4 Other disorders of lung | CPT/HCPCS: 94762 ==

== ENCOUNTER → 2023-01-02 10:41 | Outpatient (BNVA) | payer MEDICARE, MEDICAID, SELFPAY | PROVIDERS: PCP Nurse Practitioner Family; Visit Provider Internal Medicine Cardiovascular Disease | DX: R94.39 Abnormal result of other cardiovascular function study (principal); I48.91 Unspecified atrial fibrillation; J96.11 Chronic respiratory failure with hypoxia; R60.9 Edema, unspecified; E78.5 Hyperlipidemia, unspecified; E11.9 Type 2 diabetes mellitus without complications; I10 Essential (primary) hypertension; Z87.891 Personal history of nicotine dependence; Z79.01 Long term (current) use of anticoagulants | CPT/HCPCS: 99214 ==

== ENCOUNTER → 2023-01-15 12:13 | Outpatient (BNVA) | payer MEDICARE, MEDICAID, SELFPAY | PROVIDERS: PCP Nurse Practitioner Family; Visit Provider Nurse Practitioner Family | DX: E11.9 Type 2 diabetes mellitus without complications (principal); E55.9 Vitamin D deficiency, unspecified | CPT/HCPCS: 80053; 80061; 82306; 82607; 83036; 83735; 84443; 85025; 87070; 87075; 87077; 87184; 87205 ==

== ENCOUNTER → 2023-01-22 12:59 | Outpatient (BNVA) | payer MEDICARE, MEDICAID, SELFPAY | PROVIDERS: PCP Nurse Practitioner Family; Visit Provider Podiatrist Foot & Ankle Surgery | DX: E11.21 Type 2 diabetes mellitus with diabetic nephropathy (principal); L60.3 Nail dystrophy; M20.42 Other hammer toe(s) (acquired), left foot; M20.41 Other hammer toe(s) (acquired), right foot; M21.612 Bunion of left foot; M21.611 Bunion of right foot | CPT/HCPCS: 11721 ==

== ENCOUNTER 2023-02-12 06:03 | Outpatient (CLI) | payer MEDICARE, MEDICAID, SELFPAY ==
[2023-02-12] VITALS (11 sets, daily range): BP systolic 115–151; BP diastolic 72–101; PULSE 58–77; RESP 16–26; TEMP 36.6–37.2; O2SAT 92–96; BMI 56.0
--- NOTE | 2023-02-12 06:00 | XACV_ITS ---
Exam Room: 2 Ht: 157 cm Wt: 139 kg BSA: 2.56 m2 Gender: Female : 1955 Any Known Allergies: Penicillins Exam Priority: Routine Procedure(s): Procedure Description: Diagnostic procedure Zeus GREENFIELD; Diagnostic Cath Status: Elective Diagnostic Findings * The left main is a medium caliber elongated vessel with no significant stenotic lesions. * The left anterior descending artery is a medium caliber vessel which appears to taper out to his the LV apex. The proximal to the mid LAD was found to have diffuse irregular narrowing of around 30 to 40%. Moderate coronary calcification was noted in the segment. The first diagonal branch was found to have minimal ostial narrowing. The second diagonal branch was found to have a 30 to 40% diffuse disease in the proximal segment. The third diagonal branch was found to minimal ostial narrowing. There are 3 diagonal branches appears to take off from the LAD in close proximity. The LAD proper after the third diagonal branch was found to be relative small caliber with a mild diffuse intimal irregularities.. * The left circumflex artery is a small to medium caliber nondominant vessel with no significant stenotic lesions. * The right coronary artery is a relatively large caliber dominant vessel with mild diffuse intimal irregularities. No significant stenotic lesions were noted.. Conclusions 1. 59-year-old White for male with a history of high blood pressure, lipidemia, type 2 diabetes, COPD the orbit obesity, presented with complaints of increased shortness of chest discomfort. She had [place] perfusion imaging in October 2021 which revealed a moderate area of fixed perfusion defect with some small areas of reversible defects, in the distribution of the left anterior descending artery/circumflex artery. In view of the patient's ongoing worsening of the symptoms, in order to further evaluate her coronary status, a cardiac catheterization was recommended. Patient underwent left heart catheterization with left and right coronary angiogram and LV angiogram today. The findings are as follows.. 2. 1. Mild diffuse coronary artery disease. #2 mild to moderate calcification in the proximal to mid LAD. #3 normal LV ejection fraction of 65%. #4 LVEDP of 15 mmHg. Diagnostic RX Recommendation: medical therapy and/or counseling LV EDP: 15 mmHg Ventriculography Ejection Fraction: 65.0 % Left Ventriculography Findings: * LV gram was performed the CANDELARIO projection. The LV cavity appears to be normal size. LV ejection fraction is around 65%. No filling defects are noted. No significant mitral valve prolapse or mitral regurgitation. Pressures Phase:Rest AO : 144 / 76 ( 103 ) @ 8:41:00 AM 121 / 78 ( 98 ) @ 8:42:00 AM 114 / 78 ( 95 ) @ 8:48:00 AM 141 / 69 ( 99 ) @ 8:52:00 AM 142 / 69 ( 99 ) @ 8:52:00 AM LV : 139 / -17 / 14 @ 8:51:00 AM 138 / -11 / 15 @ 8:52:00 AM 139 / -9 / 18 @ 8:52:00 AM Valves Phase:DefaultPhase AV : 0.0 @ 8:11:52 AM 0.0 @ 8:11:52 AM AV Mean Gradient: 0.0 @ 8:11:52 AM 0.0 @ 8:11:52 AM Clinical Evaluation EBL: 5mL-10mL Procedural Details Procedure Consent Obtained. Pre-Procedure Time Out. Identified patient by full name and date of as verbalized by the patient/guarantor. Does the consent match the physician's order: Yes. Accurate & Complete Informed Consent: Yes. Inpatient/Outpatient History & Physical on Chart: Yes. If H&P is completed, is and addenduem needed: No; If yes, is the addendum complete: N/A. Visualize and Verify Site with Patient/Guarantor: N/A. Relevant Radiology Images available: Yes. Pre-op teaching completed and patient verbalized understanding. The risks, benefits, and alternatives of sedation and/or procedure were discussed by physician. The patient agrees to continue. Procedure started. Physician arrived. Current Diagnosis : Chest Pain. [facility] Clinical Fraility Score: 3: Managing Well. Global Process Owner Indications: Worsening Angina. Chest Pain Symptom Assessment: Typical Angina Symptoms. Correct patient, site and procedure confirmed by cath team. Current diagnosis: Chest Pain. PERRLA. Strong, equal hand instructional design technologist bilaterally. Lungs clear x 5 lobes. IV Site on Arrival: 20 gauge in the right anticubital. IV Fluids: 0.9% NaCl at KVO. 0 mL infused prior to skilled labor. Pre Procedural Pulses: bilateral dorsalis pedis was 2+. Pre Procedural Pulses: bilateral posterior tibial was 1+. Oxygen started at 2liters/min via nasal canula. bilateral groins was prepped with chloroprep then draped in the usual sterile fashion. Baseline sample Acquired. HR: 65 BPM. Physician scrubbed in. Immediate Pre-Procedure Time Out. Correct Patient: Yes; Correct Procedure: Yes; Correct Site: Yes; Correct Patient Position: Yes; Correct Supplies: Yes; Dried Flammable Prep: Yes; Blood Products Available: N/A;. Lidocaine 1% infiltrated to the right groin. Arterial access obtained with micropuncture set. A 5 haitian JL4 catheter in over wire. Multiple views taken of left coronary artery. Catheter removed over the standard wire. A 5 haitian JR4 catheter in over wire. Multiple views taken of right coronary artery. Catheter removed over the standard wire. A 5 haitian Angled Pig catheter in over wire. EDP Sample taken: LV 139/-18,14; HR: 72 BPM; SpO2: 95%. LV gram performed in CANDELARIO @ 10 mL/second for a total of 30 mL. EDP Sample taken: LV 138/-12,15; HR: 70 BPM; SpO2: 94%. Pullback taken: LV 139/-10,18; AO 141/69(99); Mean: 0mmHg, Peak to Peak: 0mmHg, SEP: 16sec/min; HR: 70 BPM; SpO2: 94%. Catheter removed over the standard wire. Physician review of cine films. Physician scrubbed out. Sheath(s) removed and manual pressure held until hemostasis was achieved. Sterile 4x4 and Op-site applied to the puncture site. No oozing or hematoma noted. Post sheath removal instructions were given and the patient verbalized understanding. Post Procedure: Pulses reassessed and unchanged. A Manual Compression was successful obtaining hemostatsis at the Right Femoral artery insertion site. PERRLA. Strong, equal hand instructional design technologist bilaterally. No VTE prophylaxis required. Medication's Wasted: Heparin = 4500 units. Total IV fluids: 75 mL. Complications: None. Estimated blood loss: 5mL-10mL. Responsiveness - Normal response to verbal stimuli; alert and oriented, PERRLA. Airway - Unaffected, no intervention required; spontaneous ventilation. Circulation: W/N/L, pulses unchanged. Nausea/Vomiting: No. Procedure completed. Patient transferred by bed to CPRU. Vital chart was stopped. Access Site Site: Right Femoral artery Sheath Size: 5 Fr Hemostasis Method: Manual Compression Hemostasis Success: Successful Procedure Medications Start: 7:29 AM Stop: 7:29 AM Medication: Versed Amount: 1 mg Route: I.V. Start: 7:29 AM Stop: 7:29 AM Medication: Fentanyl Amount: 50 mcg Route: I.V. Start: 7:32 AM Stop: 7:32 AM Medication: Fentanyl Amount: 25 mcg Route: I.V. Start: 7:42 AM Stop: 7:42 AM Medication: Heparin Amount: 1500 units Route: I.V. Start: 7:46 AM Stop: 7:46 AM Medication: Fentanyl Amount: 25 mcg Route: I.V. Start: 7:46 AM Stop: 7:46 AM Medication: Versed Amount: 1 mg Route: I.V. I, the attending physician, have reviewed and verified all procedure medications. Yes, all medications given per verbal order History/Risk Factors Hypertension: Yes Dyslipidemia: Yes Peripheral Arterial Disease (PAD): No Myocardial Infarction (MO): No Obesity: Yes Renal Disease: No Tobacco Use: Former Prior Interventions PCI: No CABG: No Valve Surgery: No Report Signatures Finalized by Dr Arabella Schulz MD [facility] on 02/12/2023 10:00 AM
[2023-02-12 06:46] LABS: Basophils # 0.1 10^3/uL (0.0-0.1); Basophils % 0.5 %; Eosinophils # 0.2 10^3/uL (0.0-0.8); Eosinophils % 1.9 %; Hematocrit 40.4 % (36-47); Lymphocytes # 3.6 10^3/uL (0.8-4.8); Lymphocytes % 34.3 %; Mean Corpuscular HGB Conc 33.4 g/dL (30-55); Mean Corpuscular Hemoglobin 31.7 pg (27-33); Mean Corpuscular Volume 94.8 fl (85-98); Mean Platelet Volume 9.1 fL (7.4-10.4); Monocytes # 0.7 10^3/uL (0.2-0.9); Monocytes % 6.3 %; Neutrophils # 5.89 10^3/uL (1.8-7.7); Neutrophils % 56.3 %; Nucleated Red Blood Cells % 0 %; Platelet Count 270 10^3/cmm (157-399); Red Blood Count 4.26 10^6/uL (3.85-5.65); Red Cell Distribution Width 13.3 % (12.1-15.1); White Blood Count 10.45 10^3/uL (3.29-11.43)
[2023-02-12 07:02] LABS: Anion Gap 14.7 (5-19); Blood Urea Nitrogen 15 mg/dL (8-23); Calcium 9.9 mg/dL (8.5-10.5); Carbon Dioxide 28 mmol/L (22-29); Chloride 102 mmol/L (98-107); Glomerular Filtration Rate 62.3 mL/min (90-130); Glucose 117 mg/dL (65-115); Osmolality Calculated 294 mOsm/kg (285-295); Potassium 3.7 mmol/L (3.5-5.1); Sodium 141 mmol/L (136-145)
[2023-02-12] MEDS: diphenhydrAMINE 50 mg Capsule PO (07:05)
[2023-02-12] MEDS: aspirin 325 mg Tablet PO (07:05)
--- NOTE | 2023-02-12 07:20 | P.HP_ITS ---
Providers/Chief Complaint Admitting Physician: Dr MICHAEL Schulz Primary Care Provider: LIBBY Ayala Chief Complaint: R94.39, I48.91, R07.89, E78.5 History of Present Illness Flavia Zaldivar is a 67 year old female with a history of COPD, hypertension,, recently diagnosed atrial fibrillation, presented with increasing shortness of breath and chest discomfort. She had a myocardial vision imaging in October of last year which revealed areas of fixed and reversible defects mostly in the distribution of the left anterior descending artery and the circumflex artery. In view of the patient's or worsening symptoms, in order to further evaluate her coronary status, a cardiac catheterization was recommended. Patient has no fever or chills. No severe cough. Review of Systems Narrative: CONSTITUTIONAL: No fever or chills. EYES: No blurring of vision or other visual disturbances lately. ENT: No hoarseness of voice, auditory disturbances or sore throat. CARDIOVASCULAR: As mentioned above. RESPIRATORY: Has a baseline shortness of breath with activities GASTROINTESTINAL: No hematemesis or melena. GENITOURINARY: No dysuria or hematuria. INTEGUMENTARY: No skin rashes or history of skin cancer. NEURO: No transient ischemic attacks or amaurosis. PSYCHIATRIC: No history of psychosis or major depression. HEMATOLOGIC: No bleeding disorders or significant anemia. ENDOCRINE: No history of polyuria or polydipsia. MUSCULOSKELETAL: No recent joint pain or swelling. ALLERGY/IMMUNOLOGY: As mentioned above. Medications/Allergies Home Medications Medication Instructions Recorded Confirmed Last Taken Type cholecalciferol (vitamin D3) 25 1,000 unit PO DAILY 07/23/19 01/22/23 11/24/20 History mcg (1,000 unit) tablet omega-3 fatty acids 1,000 mg 1,000 mg PO DAILY 07/23/19 01/22/23 11/24/20 History capsule (Fish Oil Concentrate) blood-glucose meter #1 ea 11/22/19 01/22/23 Unknown Rx Diabetic Shoes #1 ea 10/20/20 01/22/23 Unknown Rx vitamin B complex (B 1 tab PO DAILY 10/20/20 01/22/23 11/24/20 History Complex-Vitamin B12 tablet) diabetic shoes and inserts #1 ea 11/15/20 01/22/23 Unknown Rx shower chair #1 ea 04/04/21 01/22/23 Unknown Rx ASO to the left #1 ea 06/13/21 01/22/23 Unknown Rx albuterol sulfate 90 mcg/actuation See Rx Instructions .Route 10/03/21 01/22/23 Unknown Rx aerosol inhaler .COMPLEX #18 grams tramadol 50 mg tablet 50 mg PO BID PRN pain #60 tabs 01/21/22 01/22/23 Unknown Rx polyethylene glycol 3350 17 17 g PO DAILY PRN constipation 02/21/22 01/22/23 Unknown Rx gram/dose oral powder (Miralax) #238 grams Custom diabetic shoes with 3 sets #1 ea 03/21/22 01/22/23 Unknown Rx of inserts diabetic shoes 03/21/22 01/22/23 Unknown History shoe insoles #1 ea 03/21/22 01/22/23 Unknown Rx ondansetron HCl 4 mg tablet 4 mg PO QID #30 tabs 05/28/22 01/22/23 Unknown Rx fluticasone fur. 100 mcg-umeclid 1 inh inhalation DAILY #60 ea 07/23/22 01/22/23 Unknown Rx 62.5 mcg-vilant 25 mcg inhalat.powder (Trelegy Ellipta) cyclobenzaprine 10 mg tablet 10 mg PO TID PRN muscle spasm #30 08/14/22 01/22/23 Unknown Rx tabs triamcinolone acetonide 0.1 % See Rx Instructions .Route 11/27/22 01/22/23 Unknown Rx topical cream .COMPLEX #80 grams Acapella #1 ea 12/04/22 01/22/23 Unknown Rx ipratropium 0.5 mg-albuterol 3 mg 3 ml inhalation Q6H PRN wheezing 12/04/22 01/22/23 Unknown Rx (2.5 mg base)/3 mL nebulization #180 mL soln sodium chloride 7 % for 1 inh inhalation BID 3 months #240 12/04/22 01/22/23 Unknown Rx nebulization (Hyper-Mick) mL blood sugar diagnostic (Accu-Chek #50 ea 12/18/22 01/22/23 Unknown Rx Guide test strips) nitroglycerin 0.4 mg sublingual 0.4 mg sublingual Q5M PRN chest 01/02/23 01/22/23 Unknown Rx tablet pain 30 days #30 tabs bumetanide 1 mg tablet 1 mg PO BID #180 tabs 01/07/23 01/22/23 Unknown Rx apixaban 5 mg tablet (Eliquis) 5 mg PO BID #180 tabs 01/10/23 01/22/23 Unknown Rx azelastine 137 mcg (0.1 %) nasal 2 spray intranasal BID #30 mL 01/10/23 01/22/23 Unknown Rx spray aerosol montelukast 10 mg tablet 10 mg PO DAILY #90 tabs 01/15/23 01/22/23 Unknown Rx (Singulair) tirzepatide 2.5 mg/0.5 mL 2.5 mg (0.5 mL) SUBCUT .weekly #2 01/15/23 01/22/23 Unknown Rx subcutaneous pen injector mL (Mounjaro) mupirocin 2 % topical ointment 1 applic topical TID 1 week #22 01/27/23 Unknown Rx grams amlodipine 10 mg tablet 10 mg PO DAILY 02/11/23 02/11/23 Unknown History cetirizine 10 mg tablet (Allergy 10 mg PO DAILY 02/11/23 02/11/23 Unknown History Relief (cetirizine)) citalopram 20 mg tablet 30 mg PO DAILY 02/11/23 02/11/23 Unknown History magnesium oxide 400 mg (241.3 mg 400 mg PO DAILY 02/11/23 02/11/23 Unknown History magnesium) tablet metoprolol succinate 25 mg 25 mg PO DAILY 02/11/23 02/11/23 Unknown History tablet,extended release 24 hr pantoprazole 40 mg tablet,delayed 40 mg PO BID 02/11/23 Unknown History release potassium chloride 10 mEq 20 meq PO DAILY 02/11/23 02/11/23 Unknown History capsule,extended release rosuvastatin 10 mg tablet 10 mg PO DAILY 02/11/23 02/11/23 Unknown History Allergies Allergy/AdvReac Type Severity Reaction Status Date / Time tetracycline Allergy Intermediate Unknown Verified 01/22/23 13:21 latex Allergy Mild rash Verified 01/22/23 13:21 lisinopril Allergy ALGY-Anaphy Verified 01/22/23 13:21 laxis Penicillins Allergy Unknown Verified 01/22/23 13:21 Sulfa (Sulfonamide Allergy ADR-Vomitin Verified 01/22/23 13:21 Antibiotics) g PFSH Acute PFSH: Medical History Afib Anxiety with depression Bradycardia CAD (coronary artery disease) Cholelithiasis Chronic knee pain COPD (chronic obstructive pulmonary disease) GERD (gastroesophageal reflux disease) Hypertension Obesity Osteoarthritis Parotid gland enlargement surgical removal Peripheral edema Stress incontinence Vitamin D deficiency Surgical History H/O esophagogastroduodenoscopy (04/13/20) Hx of tubal ligation Status post colonoscopy with polypectomy repeat due 04/2025 Family History Family/Other Diabetes Suicide Mother Cancer Clotting disorder Father Suicide Grandfather CAD (coronary artery disease) Brother CAD (coronary artery disease) Suicide Sister Diabetes Stroke Denies family history of Dementia Chronic kidney disease (CKD) Anesthesia complication Bleeding disorder Lung disease Social History Smoking and tobacco status: former smoker Quit status (tobacco): has quit using tobacco Year quit tobacco: 2020 Former quit date comment: 2 PPD x 53 Years Second hand smoke exposure: No Smoking risk assessment/counseling performed?: No Alcohol intake: current Alcohol intake frequency: 0-2 Drinks per Day Counseling given: No Substance/Drug Use: never Counseling given: No Lives independently: Yes Household members: none Marital status: Single Current occupational status: disabled Do you think of yourself as: Straight/Heterosexual Current gender identity: Female Vitals/I&O/Wt Last Vital Signs Temp 99.0 F 02/12/23 07:10 Pulse 66 02/12/23 07:10 Resp 18 02/12/23 07:10 BP 151/101 02/12/23 07:10 Pulse Ox 96 02/12/23 07:10 O2 Del Method Room Air 02/12/23 07:10 Weight last 48 hrs Weight 306 lb Physical Exam Narrative: GENERAL: The patient is alert and oriented times three. Not in any acute dist ress. Morbidly obese HEENT: No significant pallor, icterus or lymphadenopathy.Oral cavity: There are no mucous membrane lesions. NECK: Trachea appears to be central. No masses noted. No JVD or thyromegaly appreciated. RESPIRATORY: Chest is symmetrical. No intercostals muscle retraction or any acc essory muscle activation. There is no chest wall tenderness. Breath sounds are heard bilaterally. No rales or rhonchi heard. No evidence of any consolidation. BREASTS: Deferred. HEART: The heart sounds are normal. No S3 or S4. No significant murmurs. No pericardial rub ABDOMEN: No vessel pulsations or distention. No tenderness. No organomegaly appreciated. Bowel sounds are normally heard. : Deferred. RECTAL: Deferred. LYMPHATIC: No lymphadenopathy noted in the neck. EXTREMITIES: Trace edema with no cyanosis MUSCULOSKELETAL: No acute joint deformities or swelling SKIN: There are no significant rashes or ecchymosis NEUROPSYCHIATRIC: The patient is alert and oriented x3. Appears to be in a good mood. No tremors or rigidity noted. Data 02/12/23 06:36 02/12/23 06:36 A&P Assessment and plan (1) Abnormal cardiovascular stress test: (2) Asthma-COPD overlap syndrome: Currently stable (3) Atrial fibrillation: Currently in a regular rhythm. Patient stopped taking the Eliquis Friday (4) Peripheral edema: Chronic and stable (5) Hyperlipidemia: Qualifiers: Hyperlipidemia type: unspecified Qualified Code(s): E78.5 - Hyperlipidemia, unspecified (6) Hypertension: Currently of stage II. We will optimize antihypertensive medications. Qualifiers: Hypertension type: essential hypertension Qualified Code(s): I10 - Essential (primary) hypertension (7) COPD (chronic obstructive pulmonary disease): Qualifiers: COPD type: unspecified COPD Qualified Code(s): J44.9 - Chronic obstructive pulmonary disease, unspecified Plan In view of the patient's ongoing worsening of symptoms, in order to further evaluate the coronary status, a cardiac catheterization was recommended. The risk of bleeding, hematoma, vascular injury, myocardial infarction, myocardial perforation, malignant cardiac arrhythmias ,CVA, renal failure and other concomitant complications were explained in detail. Patient understood this well and consented to proceed. We may go ahead and do this procedure this morning. Based on the results, further management decisions will be made. Attestations Medical Necessity Statement*: Patient may require 1 midnight stay Coding Level of Care Code 33288 Diagnoses Abnormal cardiovascular stress test R94.39 Asthma-COPD overlap syndrome J44.9 Atrial fibrillation I48.91 Peripheral edema R60.9 Hyperlipidemia E78.5 Hyperlipidemia type: unspecified Hypertension I10 Hypertension type: essential hypertension COPD (chronic obstructive pulmonary disease) J44.9 COPD type: unspecified COPD
--- NOTE | 2023-02-12 07:28 | P.HPUD_ITS ---
Surgery/Procedure H&P Update DATE OF PROCEDURE: February 12, 2023 DATE H&P PERFORMED: 02/12/23 H&P UPDATE INFORMATION: I have reviewed H&P completed within last 30 days, I have examined patient prior to procedure and No changes to prior documentation PREOP DIAGNOSIS: ASHD PRIMARY INDICATION FOR PROCEDURE: Abnormal Myocardial perfusion imaging, chest pain/shortness of breath with recent worsening, multiple risk factors for coronary artery disease PLANNED PROCEDURE: Operation Date: 02/12/23 07:00 Proposed Procedures p [facility] w/ w/o 08902, R94.39,I48.91,R07.89,E78.5(Left) - Arabella Schulz MD PATIENT REASSESSED PRIOR TO SEDATION, WITH NO CHANGE NOTED: Yes PHYSICAL EXAM: alert, oriented x 3, clear to auscultation bilaterally and regular rate & rhythm AIRWAY EVAL/ANESTHESIA PLAN: normal airway, see other exam findings, ASA III, Monitored Anesthesia, Local Anesthesia, Risks, benefits & alternatives of sedation and/or procedure discussed and Patient agrees to continue as planned
[2023-02-12 08:12] LABS: Glucose Point of Care 117 mg/dL (70-110)
--- NOTE | 2023-02-12 08:29 | PC.NURSE ---
received pt from lab specialist post diagnostic [facility]. pt complains of no pain, pt alert and oriented x3. sheath pulled in lab specialist. right femoral site clean and dry, no hematoma or bruising noted. pt educated on restrictions of right leg. pt stated understanding. pt to be educated throughout recovery as well. pt placed on vitals monitor and will be monitored per protocol. plan is to recover for 30 mins and then sent to [facility].
[2023-02-12] MEDS: TRAMadol 50 mg Tablet PO (10:09)
[2023-02-12] MEDS: potassium chloride ER 20 mEq Tablet PO (10:09)
[2023-02-12] MEDS: bumetanide 1 mg Tablet PO ×2 (10:09→18:19)
[2023-02-12] MEDS: ipratropium-albuterol 3 mL Neb INHALATION ×2 (11:21→16:24)
[2023-02-12] MEDS: citalopram 20 mg Tablet 30 MG PO (18:16)
[2023-02-12] MEDS: cholecalciferol (vitamin D3) 1,000 unit Tablet 1000 UNIT PO (18:16)
[2023-02-12] MEDS: metoprolol succinate ER (24 HR) 25 mg Tablet PO (18:17)
[2023-02-12] MEDS: omega-3 fatty acids 1,000 mg Capsule 1000 MG PO (18:17)
[2023-02-12] MEDS: atorvastatin 40 mg Tablet PO (18:17)
[2023-02-12] MEDS: montelukast sodium 10 mg Tablet PO (18:17)
[2023-02-12] MEDS: cyclobenzaprine 10 mg Tablet PO (18:49)
[2023-02-12] MEDS: acetaminophen 325 mg Tablet 650 MG PO (18:50)
[2023-02-13] MEDS: acetaminophen 325 mg Tablet 650 MG PO (00:46)
[2023-02-13 05:26] VITALS: PULSE 51
[2023-02-13 07:09] VITALS: BP 118/83; PULSE 64; RESP 18; TEMP 36.4; O2SAT 94
[2023-02-13 08:18] VITALS: PULSE 57; RESP 16; O2SAT 94
[2023-02-13] MEDS: magnesium oxide 400 mg tablet PO (08:18)
[2023-02-13] MEDS: cetirizine 10 mg Tablet PO (08:19)
[2023-02-13] MEDS: potassium chloride ER 20 mEq Tablet PO (08:19)
[2023-02-13] MEDS: amlodipine 10 mg Tablet PO (08:19)
[2023-02-13] MEDS: bumetanide 1 mg Tablet PO (08:19)
[2023-02-13] MEDS: budesonide 0.5 mg/2 mL Neb INHALATION (08:27)
[2023-02-13] MEDS: ipratropium-albuterol 3 mL Neb INHALATION (08:27)
--- NOTE | 2023-02-13 08:35 | PC.NURSE ---
dr ordered to apply betadine and change dressings prior to discharge. pt would like [facility] to help with wound care dressing changes. Dr Schulz is aware.
[2023-02-13] MEDS: pantoprazole DR 40 mg Tablet PO (08:40)
== END 2023-02-13 09:26 | disposition home or self-care (01) ==
LOC: CCL 06:03 → CSU 09:37
PROVIDERS: PCP Nurse Practitioner Family; Visit Provider Internal Medicine Cardiovascular Disease
DX: I25.10 Atherosclerotic heart disease of native coronary artery without angina pectoris (principal); E78.5 Hyperlipidemia, unspecified; I10 Essential (primary) hypertension; E11.9 Type 2 diabetes mellitus without complications; E66.9 Obesity, unspecified; Z68.43 Body mass index [BMI] 50.0-59.9, adult; J44.9 Chronic obstructive pulmonary disease, unspecified; Z87.891 Personal history of nicotine dependence; I48.91 Unspecified atrial fibrillation; K21.9 Gastro-esophageal reflux disease without esophagitis; R94.39 Abnormal result of other cardiovascular function study
CPT/HCPCS: 36415; 36416; 80048; 82962; 85025; 93458; 94640; 96361; 96365; 96367; 99152; 99153; C1769; C1887; C1894; J1644; J2250; J3010; J7030; J7626; Q0163; Q9967

== ENCOUNTER → 2023-02-27 10:33 | Outpatient (BNVA) | payer MEDICARE, MEDICAID, SELFPAY | PROVIDERS: PCP Nurse Practitioner Family; Visit Provider Nurse Practitioner Family | DX: I25.10 Atherosclerotic heart disease of native coronary artery without angina pectoris (principal); Z87.891 Personal history of nicotine dependence; Z79.01 Long term (current) use of anticoagulants; I10 Essential (primary) hypertension | CPT/HCPCS: 36415; 80048; 99214 ==

== ENCOUNTER → 2023-04-10 09:51 | Outpatient (BNVA) | payer MEDICARE, MEDICAID, SELFPAY | PROVIDERS: PCP Nurse Practitioner Family; Visit Provider Internal Medicine Cardiovascular Disease | DX: I25.10 Atherosclerotic heart disease of native coronary artery without angina pectoris (principal); I48.91 Unspecified atrial fibrillation; J96.11 Chronic respiratory failure with hypoxia; E78.5 Hyperlipidemia, unspecified; E11.9 Type 2 diabetes mellitus without complications; I10 Essential (primary) hypertension; Z87.891 Personal history of nicotine dependence; Z79.01 Long term (current) use of anticoagulants; E11.21 Type 2 diabetes mellitus with diabetic nephropathy; L60.3 Nail dystrophy; L84 Corns and callosities; M20.42 Other hammer toe(s) (acquired), left foot; M20.41 Other hammer toe(s) (acquired), right foot; M21.612 Bunion of left foot; M21.611 Bunion of right foot | CPT/HCPCS: 11055; 11721; 99214 ==

== ENCOUNTER → 2023-06-30 10:32 | Outpatient (BNVA) | payer MEDICARE, MEDICAID, SELFPAY | PROVIDERS: PCP Nurse Practitioner Family; Visit Provider Nurse Practitioner Family | DX: E11.9 Type 2 diabetes mellitus without complications (principal); E55.9 Vitamin D deficiency, unspecified | CPT/HCPCS: 80053; 80061; 82306; 82607; 83735; 84443; 85025; 87070; 87075; 87077; 87184; 87205 ==

== ENCOUNTER → 2023-07-16 11:39 | Outpatient (BNVA) | payer MEDICARE, MEDICAID, SELFPAY | PROVIDERS: PCP Nurse Practitioner Family; Visit Provider Podiatrist Foot & Ankle Surgery | DX: E11.21 Type 2 diabetes mellitus with diabetic nephropathy (principal); M20.41 Other hammer toe(s) (acquired), right foot; M20.42 Other hammer toe(s) (acquired), left foot; L60.3 Nail dystrophy; L84 Corns and callosities; M21.612 Bunion of left foot; M21.611 Bunion of right foot | CPT/HCPCS: 11056; 11721 ==

== ENCOUNTER → 2023-10-14 11:21 | Outpatient (BNVA) | payer MEDICARE, MEDICAID, SELFPAY | PROVIDERS: PCP Nurse Practitioner Family; Visit Provider Podiatrist Foot & Ankle Surgery | DX: L60.3 Nail dystrophy (principal); L84 Corns and callosities; E11.21 Type 2 diabetes mellitus with diabetic nephropathy; R06.02 Shortness of breath | CPT/HCPCS: 11055; 11721; 36415; 80048; 83880; 99214 ==

== ENCOUNTER → 2023-11-13 10:47 | Outpatient (BNVA) | payer MEDICARE, MEDICAID, SELFPAY | PROVIDERS: PCP Nurse Practitioner Family; Visit Provider Nurse Practitioner Family | DX: E78.5 Hyperlipidemia, unspecified (principal); E11.9 Type 2 diabetes mellitus without complications; E55.9 Vitamin D deficiency, unspecified | CPT/HCPCS: 80053; 80061; 82306; 82607; 83036; 84443; 85025 ==

== ENCOUNTER → 2024-01-08 09:44 | Outpatient (BNVA) | payer MEDICARE, MEDICAID, SELFPAY | PROVIDERS: PCP Nurse Practitioner Family; Visit Provider Nurse Practitioner Family | DX: D48.5 Neoplasm of uncertain behavior of skin (principal); L21.8 Other seborrheic dermatitis; L73.2 Hidradenitis suppurativa; L73.8 Other specified follicular disorders; D22.39 Melanocytic nevi of other parts of face; L82.1 Other seborrheic keratosis | CPT/HCPCS: 11102; 11103; 99204 ==

== ENCOUNTER → 2024-01-13 11:00 | Outpatient (BNVA) | payer MEDICARE, MEDICAID, SELFPAY | PROVIDERS: PCP Nurse Practitioner Family; Visit Provider Podiatrist Foot & Ankle Surgery | DX: L60.3 Nail dystrophy (principal); L84 Corns and callosities; E11.21 Type 2 diabetes mellitus with diabetic nephropathy | CPT/HCPCS: 11055; 11721 ==

== ENCOUNTER 2024-02-25 08:24 | Outpatient (CLI) | payer MEDICARE, MEDICAID, SELFPAY ==
--- NOTE | 2024-02-25 08:27 | CT_ITS ---
WS: [id number] LDCT LUNG CANCER SCREENING HISTORY: PERSONAL HX OF NICOTINE DEPENDENCE TECHNIQUE: Axial imaging performed from the apices to 1 cm below the costophrenic angles. Coronal and sagittal reformats are submitted with axial MIP series. All CT scans at [facility] use at least one of these dose optimization techniques: automated exposure control; mA and/or kV adjustment per patient size (includes targeted exams where dose is matched to clinical indication); or iterativ e reconstruction. DLP: 171.51 mGy.cm DIvol: Mean CTDIvol: 5.20 (mGy) COMPARISON: 12/19/2022 Diagnostic quality: Satisfactory Lungs: Pulmonary hyperexpansion. No pulmonary mass. There are a few small micronodules. LEFT perifiss ural nodule described on the prior study is not as well-visualized today. Small amount of mucus in th e proximal bronchi. Heart: Normal size heart with no pericardial effusion.. Other findings: Mild atherosclerosis aorta. Mildly dilated pulmonary artery. Mild LEFT adrenal gland thickening. Moderate thoracic spondylosis. CT/CT lung screening [id number] IMPRESSION: LUNG-RADS: 2-Benign Appearance or Behavior FOLLOW UP: 12 Month: Continue annual screening with LDCT OTHER FINDINGS (S MODIFIER): None.
== END 2024-02-25 08:25 | disposition home or self-care (01) ==
LOC: RAD 08:24
PROVIDERS: PCP Nurse Practitioner Family; Visit Provider Internal Medicine Pulmonary Disease
DX: Z12.2 Encounter for screening for malignant neoplasm of respiratory organs (principal); Z87.891 Personal history of nicotine dependence; M46.94 Unspecified inflammatory spondylopathy, thoracic region
CPT/HCPCS: 11102; 71271; 99204

== ENCOUNTER → 2024-03-08 10:05 | Outpatient (BNVA) | payer MEDICARE, MEDICAID, SELFPAY | PROVIDERS: PCP Nurse Practitioner Family; Visit Provider Nurse Practitioner Family | DX: L91.8 Other hypertrophic disorders of the skin (principal); L21.8 Other seborrheic dermatitis; L73.2 Hidradenitis suppurativa | CPT/HCPCS: 17110; 99214 ==

== ENCOUNTER → 2024-05-27 12:10 | Outpatient (BNVA) | payer MEDICARE, MEDICAID, SELFPAY | PROVIDERS: PCP Nurse Practitioner Family; Visit Provider Nurse Practitioner Family | DX: E11.9 Type 2 diabetes mellitus without complications (principal); F41.8 Other specified anxiety disorders; I10 Essential (primary) hypertension; R25.2 Cramp and spasm | CPT/HCPCS: 80053; 80061; 81003; 82043; 82607; 83036; 84443; 85025 ==

== ENCOUNTER → 2024-06-29 10:54 | Outpatient (BNVA) | payer MEDICARE, MEDICAID, SELFPAY | PROVIDERS: PCP Nurse Practitioner Family; Visit Provider Podiatrist Foot & Ankle Surgery | DX: L60.3 Nail dystrophy (principal); L84 Corns and callosities; E11.21 Type 2 diabetes mellitus with diabetic nephropathy | CPT/HCPCS: 11055; 11721 ==

== ENCOUNTER → 2024-10-06 10:44 | Outpatient (BNVA) | payer MEDICARE, MEDICAID, SELFPAY | PROVIDERS: PCP Nurse Practitioner Family; Visit Provider Nurse Practitioner Family | DX: D18.01 Hemangioma of skin and subcutaneous tissue (principal); L81.4 Other melanin hyperpigmentation; L57.8 Other skin changes due to chronic exposure to nonionizing radiation; X32.XXXA Exposure to sunlight, initial encounter; L82.1 Other seborrheic keratosis; Z12.83 Encounter for screening for malignant neoplasm of skin | CPT/HCPCS: 11055; 11721; 99214 ==

== ENCOUNTER → 2024-10-15 10:44 | Outpatient (BNVA) | payer MEDICARE, MEDICAID, SELFPAY | PROVIDERS: PCP Nurse Practitioner Family; Visit Provider Nurse Practitioner Family | DX: I48.0 Paroxysmal atrial fibrillation (principal); E78.5 Hyperlipidemia, unspecified; E11.9 Type 2 diabetes mellitus without complications; E55.9 Vitamin D deficiency, unspecified; I10 Essential (primary) hypertension | CPT/HCPCS: 80053; 80061; 81000; 81003; 82306; 83036; 83735; 85025; 87086 ==

== ENCOUNTER → 2024-12-14 14:00 | Outpatient (BNVA) | payer MEDICARE, MEDICAID, SELFPAY | PROVIDERS: PCP Nurse Practitioner Family; Visit Provider Internal Medicine Cardiovascular Disease | DX: I25.10 Atherosclerotic heart disease of native coronary artery without angina pectoris (principal); I10 Essential (primary) hypertension; I48.0 Paroxysmal atrial fibrillation; Z79.01 Long term (current) use of anticoagulants; E78.5 Hyperlipidemia, unspecified; R06.02 Shortness of breath; Z87.891 Personal history of nicotine dependence | CPT/HCPCS: 99214 ==

== ENCOUNTER → 2025-01-13 11:21 | Outpatient (BNVA) | payer MEDICARE, MEDICAID, SELFPAY | PROVIDERS: PCP Nurse Practitioner Family; Referring Provider Nurse Practitioner Family; Visit Provider Psychiatry & Neurology Neurology | DX: G56.03 Carpal tunnel syndrome, bilateral upper limbs (principal) | CPT/HCPCS: 95912 ==

== ENCOUNTER → 2025-01-19 15:10 | Outpatient (BNVA) | payer MEDICARE, MEDICAID, SELFPAY | PROVIDERS: PCP Nurse Practitioner Family; Visit Provider Physician Assistant | DX: M67.431 Ganglion, right wrist (principal); G56.01 Carpal tunnel syndrome, right upper limb; G56.02 Carpal tunnel syndrome, left upper limb | CPT/HCPCS: 73110; 99204 ==

== ENCOUNTER 2025-02-11 06:20 | Day surgery (SDC) | payer MEDICARE, MEDICAID, SELFPAY ==
[2025-02-11] VITALS (7 sets, daily range): BP systolic 90–147; BP diastolic 53–72; PULSE 51–56; RESP 18; TEMP 36.2–36.8; O2SAT 92–97; BMI 48.6
--- NOTE | 2025-02-11 07:12 | W.PM.OPSUD ---
Surgery/Procedure H&P Update DATE OF PROCEDURE: February 11, 2025 DATE H&P PERFORMED: 01/19/25 H&P UPDATE INFORMATION: I have reviewed H&P completed within last 30 days, I have examined patient prior to procedure and No changes to prior documentation PREOP DIAGNOSIS: Right carpal tunnel syndrome, right volar wrist ganglion cyst PRIMARY INDICATION FOR PROCEDURE: Right carpal tunnel syndrome, right volar wrist ganglion cyst PLANNED PROCEDURE: Operation Date: 02/11/25 07:55 Proposed Procedures p Carpal Tunnel Release(Right) - Steve Sigala DO s Excision Of volar wrist Ganglion Cyst(Right) - Steve Sigala DO
[2025-02-11] MEDS: acetaminophen 1,000 MG/100 ML PIGGYBACK 400 MG IV (07:30)
--- NOTE | 2025-02-11 07:48 | ANES.PREANE2 ---
Pre-Anesthetic Assessment Height/Weight: Height 1.6 m Weight 124.738 kg Temp Pulse Resp BP Pulse Ox O2 Del Method 98.0 F 55 L 18 147/72 97 Room Air 02/11/25 07:11 02/11/25 07:11 02/11/25 07:11 02/11/25 07:11 02/11/25 07:11 02/11/25 07:11 Preop Diagnosis: Right carpal tunnel syndrome, right volar wrist ganglion cyst Operation Date: 02/11/25 07:55 Proposed Procedures p Carpal Tunnel Release(Right) - Steve Sigala DO s Excision Of volar wrist Ganglion Cyst(Right) - Steve Sigala DO Familial anesthetic complications: none Was Beta Tatianna taken within 24 hours: Yes Was Clonidine taken within 24 hours: N/A Last intake: Intake Last Liquid Date 02/10/25 Last Liquid Time 22:00 Last Solid Date 02/10/25 Last Solid Time 22:00 Social No alcohol and No tobacco former smoker Exam alert, oriented x 3, clear to auscultation bilaterally and regular rate & rhythm Airway Mallampati: Class II Pulmonary Asthma and Chronic Obstructive Pulmonary Disease (wears O2 occasionally) CV/HEM Atrial Fibrillation, Arrythmia, Coronary Artery Disease and Hypertension GI Gastroesophageal Reflux Disease Metabolic Diabetes Mellitus, Hyperlipidemia and Morbid Obesity Anesthetic Plan ASA status: 4 Anesthesia: MAC Risk of > 500 ml blood loss (7ml/kg in children): No Medications/Allergies Home Medications ?Medication ?Instructions ?Recorded ?Confirmed ?Last Taken ?Type cholecalciferol (vitamin D3) 25 1,000 unit PO DAILY 07/23/19 02/09/25 02/10/25 History mcg (1,000 unit) tablet omega-3 fatty acids 1,000 mg 1,000 mg PO DAILY 07/23/19 02/11/25 2 Weeks Ago History capsule (Fish Oil Concentrate) ~01/28/25 blood-glucose meter #1 ea 11/22/19 01/20/25 Unknown Rx Diabetic Shoes #1 ea 10/20/20 01/20/25 Unknown Rx vitamin B complex (B 1 tab PO DAILY 10/20/20 02/09/25 02/10/25 History Complex-Vitamin B12 tablet) diabetic shoes and inserts #1 ea 11/15/20 01/20/25 Unknown Rx shower chair #1 ea 04/04/21 01/20/25 Unknown Rx ASO to the left #1 ea 06/13/21 01/20/25 Unknown Rx polyethylene glycol 3350 17 17 g PO DAILY PRN constipation 02/21/22 02/11/25 02/10/25 Rx gram/dose oral powder (Miralax) #238 grams Custom diabetic shoes with 3 sets #1 ea 03/21/22 01/20/25 Unknown Rx of inserts diabetic shoes 03/21/22 01/20/25 Unknown History shoe insoles #1 ea 03/21/22 01/20/25 Unknown Rx Acapella #1 ea 12/04/22 01/20/25 Unknown Rx ipratropium 0.5 mg-albuterol 3 mg 3 ml inhalation Q6H PRN wheezing 12/04/22 02/11/25 1 Year Ago Rx (2.5 mg base)/3 mL nebulization #180 mL ~02/12/24 soln sodium chloride 7 % for 1 inh inhalation BID 3 months #240 12/04/22 02/09/25 Unknown Rx nebulization (Hyper-Mick) mL nitroglycerin 0.4 mg sublingual 0.4 mg sublingual Q5M PRN chest 01/02/23 02/11/25 2 Months Ago Rx tablet pain 30 days #30 tabs ~12/11/24 lancets 21 gauge (Comfort EZ #100 ea 05/30/23 01/20/25 Unknown Rx Lancets) cyclobenzaprine 10 mg tablet 10 mg PO TID PRN muscle spasm #30 07/15/23 02/09/25 02/06/25 Rx tabs nystatin 100,000 unit/gram topical 1 applic topical BID 10 days #30 05/27/24 02/11/25 2 Weeks Ago Rx ointment grams ~01/28/25 clindamycin phosphate 1 % lotion 1 applic topical BID 10 days #60 mL 07/15/24 02/11/25 2 Months Ago Rx ~12/11/24 bumetanide 1 mg tablet 1 mg PO BID #180 tabs 11/11/24 02/09/25 02/11/25 04:00 Rx azelastine 137 mcg (0.1 %) nasal 2 spray intranasal 2XD PRN Nasal 12/14/24 02/11/25 02/10/25 History spray Congestion blood sugar diagnostic (Accu-Chek #100 strips 01/10/25 01/20/25 Unknown Rx Guide test strips) albuterol sulfate 90 mcg/actuation 2 puff inhalation Q6H PRN 02/09/25 02/11/25 6 Weeks Ago History aerosol inhaler Shortness Of Breath ~12/31/24 amlodipine 10 mg tablet 10 mg PO DAILY 02/09/25 02/09/25 02/11/25 04:00 History apixaban 5 mg tablet (Eliquis) 5 mg PO BID 02/09/25 02/09/25 02/09/25 History cetirizine 10 mg tablet 10 mg PO DAILY 02/09/25 02/09/25 02/11/25 04:00 History citalopram 20 mg tablet 30 mg PO DAILY 02/09/25 02/09/25 02/10/25 History magnesium oxide 400 mg (241.3 mg 400 mg PO DAILY 02/09/25 02/09/25 02/10/25 History magnesium) tablet metoprolol succinate 25 mg 25 mg PO DAILY 02/09/25 02/09/25 02/11/25 04:00 History tablet,extended release 24 hr montelukast 10 mg tablet 10 mg PO DAILY 02/09/25 02/09/25 02/11/25 04:00 History pantoprazole 40 mg tablet,delayed 40 mg PO DAILY 02/09/25 02/09/25 02/11/25 04:00 History release potassium chloride 10 mEq 20 meq PO DAILY 02/09/25 02/09/25 02/09/25 History capsule,extended release rosuvastatin 10 mg tablet 10 mg PO DAILY 02/09/25 02/09/25 02/11/25 04:00 History tirzepatide 15 mg/0.5 mL 15 mg SUBCUT Q7D 02/09/25 02/09/25 01/28/25 History subcutaneous pen injector (Mounlizzettero) Allergies Allergy/AdvReac Type Severity Reaction Status Date / Time tetracycline Allergy Intermediate Unknown Verified 01/19/25 15:22 latex Allergy Mild rash Verified 01/19/25 15:22 lisinopril Allergy ALGY-Anaphy Verified 01/19/25 15:22 laxis Penicillins Allergy Unknown Verified 01/19/25 15:22 Sulfa (Sulfonamide Allergy ADR-Vomitin Verified 01/19/25 15:22 Antibiotics) g Current Medications Generic Name Dose Route Start Last Admin Trade Name Freq PRN Reason Stop Dose Admin Sodium Chloride 1,000 mls @ 30 mls/hr 02/11/25 06:30 02/11/25 07:29 Sodium Chloride 0.9% IV 02/12/25 06:29 30 mls/hr .Q24H MIKE Administration PFSH Anesthesia Medical History (Updated 01/19/25 @ 16:47 by LATA Lawton) Nicotine addiction Quit in December 2019 Enrolled in chronic care management Atherosclerosis of [place] coronary artery without angina pectoris Stress incontinence Parotid gland enlargement surgical removal Peripheral edema CAD (coronary artery disease) Afib Bradycardia Cholelithiasis Chronic knee pain Obesity Osteoarthritis COPD (chronic obstructive pulmonary disease) Anxiety with depression GERD (gastroesophageal reflux disease) Hypertension Vitamin D deficiency Surgical History Status post colonoscopy with polypectomy repeat due 04/2025 H/O esophagogastroduodenoscopy (04/13/20) Hx of tubal ligation Family History Family/Other Diabetes Suicide Mother Cancer Clotting disorder Father Suicide Grandfather CAD (coronary artery disease) Brother CAD (coronary artery disease) Suicide Sister Diabetes Stroke Denies family history of Dementia Chronic kidney disease (CKD) Anesthesia complication Bleeding disorder Lung disease Social History Smoking and tobacco/nicotine status: former use of tobacco/nicotine Quit status (tobacco/nicotine): has quit using Year quit tobacco: 2020 Former quit date comment: 2 PPD x 53 Years Second hand smoke exposure: No Alcohol intake: current Alcohol intake frequency: 0-2 Drinks per Day Substance/Drug Use: never Lives independently: Yes Household members: none Marital status: Single Current occupational status: disabled Do you think of yourself as: Straight/Heterosexual Current gender identity: Female Data Anesthesia Cardiac Studies: Echocardiogram 07/31/21 Sestamibi Stress Test (Cardiology) 11/26/21 Cardiac Event Monitor 06/12/21
[2025-02-11] MEDS: lidocaine-epi 1% 20 mL INJ INJECTION (08:30)
[2025-02-11] MEDS: ROPivacaine 0.5% SDV 30 mL 150 MG INJECTION (08:30)
--- NOTE | 2025-02-11 08:55 | W.PM.BPON ---
Date of Procedure: 02/11/2025 Surgeon: Steve Sigala DO Mixing House Operator(s): None Procedure(s) performed: Right carpal tunnel release Right volar wrist lipoma excision Findings of the procedure(s): Patient underwent procedures provide issues or complications taken recovery stable condition volar splint applied Estimated blood loss: 5M Specimen(s) removed: right volar wrist lipoma excised and sent for specimen Post-operative diagnosis: Right carpal tunnel syndrome, right volar wrist lipoma
--- NOTE | 2025-02-11 08:56 | P.OP_ITS ---
Operative Report Date of procedure: February 11, 2025 Surgeon: Steve Sigala DO Procedure: Preop Diagnosis: Right Carpal Tunnel Syndrome Right volar wrist ganglion cyst Post-op diagnosis: Right carpal tunnel syndrome Right volar wrist lipoma Procedure done: 1. Right carpal tunnel release 2. Right volar wrist lipoma excision (3 cm x 2 cm x 1 cm) Surgeon: Steve Sigala DO Anesthesia: MAC (Local) Estimated blood loss: [5]mL Tourniquet time [12]minutes IV fluids: 400 mL Complications: None Findings: See operative report narrative Condition: stable Disposition: same day Brief History: Patient is a pleasant [69]year-old [female] with right carpal tunnel syndrome right volar wrist mass/ganglion cyst. Patient has been worked up in the outpatient setting findings and physical examination consistent with this. Patient nerve conduction studies consistent with carpal tunnel syndrome. We detailed out patient's risk benefits complication alternatives with surgical and nonsurgical treatment options. Through shared decision making, patient agrees to proceed with surgical intervention of the right carpal tunnel release and right volar wrist ganglion cyst excision. Patient understands and agrees with current plan. All questions answered. Patient elects to proceed with surgical intervention. Procedure: Patient seen and evaluated in the preoperative holding area. Consent was reviewed and signed with patient. Correct extremity was marked. Patient was seen evaluated by the anesthesia department once cleared for surgery was brought back to the operative suite. Patient was kept on [facility] in supine position all bony prominences were well-padded patient properly secured to the bed. Right upper extremity was then placed onto an armboard. A nonsterile tourniquet was applied to the Right upper arm. Patient underwent anesthesia per the anesthesia department. Patient's Right upper extremity was then prepped and draped in standard orthopedic fashion. Final timeout performed. Patient received appropriate preoperative antibiotics. Under sterile aseptic technique patient received local anesthesia over the preplanned carpal tunnel incision site. Esmarch was used to exsanguinate the Right upper extremity and tourniquet was insufflated to 250 mmHg. A standard mini open Right carpal tunnel incision was made. Starting distally at Napoles's cardinal line in line with the fourth ray extending proximally distal to the wrist crease centered over the carpal tunnel. Sharp scalpel incision was made through skin and subcutaneous tissue. Self-retaining retractor was placed and the palmar fascia was identified. This was then split longitudinally and direct visualization of the transverse carpal ligament was then made. I then utilizing scalpel feathered through the transverse carpal ligament until I entered the floor of the transverse carpal tunnel ligament into the carpal tunnel. Next I switched to dissection scissors and completed my release of the transverse carpal ligament distally with care to protect the recurrent motor branch. I completely released into the palmar fat and until no entrapment was noted distally. Care was made to protect the superficial palmar arch during my distal dissection. At this point in time given the proximity of the volar wrist is on the slightly on the ulnar side of palmaris longus plan was to incorporate this as there would only be a short area of soft tissue bridge right at the wrist crease as a result we did a Mark incision past the wrist crease extending proximally from the carpal incision and directly Mark incision over the volar wrist cyst. Sharp scalpel incision was made through skin and subcutaneous tissue switched to Littler dissection scissors protected all neurovascular structures I then completed my release of the carpal tunnel proximally as this had direct visualization we moved palmaris longus radially and then once again completed the release of the median nerve under direct visualization with Littler dissection scissors into the deep forearm fascia. This had complete the release of the median nerve and carpal tunnel once again the nerve did appear to be hourglass and shape showing its compression no masses were noted and the tendons and nerves appear to be healthy. At this point in time just ulnar to the palmaris was a soft tissue mass that once I began to dissect instruments this was clearly evident as of a lipoma this measured roughly 3 cm x 2 cm x 1 cm. This was able to be dissected with dissection scissors while protecting the neurovascular structures radially and ulnarly. While I was able to hold and dissect and completely remove the lipoma to its entirety which came out in 1 unit and was fairly easy to dissect out there is no significant deep adherence of the lipoma. This was then removed and sent for specimen. This completed the right volar wrist lipoma excision as well as the carpal tunnel release. Wound was then thoroughly irrigated. Tourniquet deflated. Hemostasis satisfactory with bipolar electrocautery. I then closed the incision with interrupted nylon stitches. Xeroform 4 x 4's and a bulky soft dressing was applied and a volar splint was applied to the right wrist given the extension past the wrist crease to protect the incision. Patient was then awakened from anesthesia and taken to PACU in stable condition. Patient tolerated procedure without complications. Disposition: Patient taken to PACU in stable condition recovering well. Dressing clean dry and intact. Patient will receive appropriate discharge instructions as well as pain medication postoperatively. Patient to follow-up with me in the office in 2 weeks. Patient will maintain splint until follow-up, patient should keep incision clean dry and intact. Patient understands if any questions or concerns may contact the office.
--- NOTE | 2025-02-11 10:00 | ANE.PACU2 ---
Inpatient post-anesthesia follow up: Airway intact: Yes Vital signs: Temperature 97.6 F Pulse Rate 51 Respiratory Rate 18 Blood Pressure 120/62 Pulse Oximetry 94 Oxygen Delivery Me thod Room Air Oxygen Flow Rate Fraction of Inspir ed Oxygen Hydration adequate: Yes Nausea and vomiting: No Pain level: 1 Mental status: Baseline
== END 2025-02-11 10:00 | disposition home or self-care (01) ==
PROVIDERS: PCP Nurse Practitioner Family; Visit Provider Student in an Organized Health Care Education/Training Program
PROC: (CPT 64721; principal; 2025-02-11 07:45)
PROC: (CPT 25073; 2025-02-11 07:45)
DX: G56.01 Carpal tunnel syndrome, right upper limb (principal); M67.441 Ganglion, right hand; D17.21 Benign lipomatous neoplasm of skin and subcutaneous tissue of right arm; Z87.891 Personal history of nicotine dependence; J44.9 Chronic obstructive pulmonary disease, unspecified; Z99.81 Dependence on supplemental oxygen; I48.91 Unspecified atrial fibrillation; I49.9 Cardiac arrhythmia, unspecified; I25.10 Atherosclerotic heart disease of native coronary artery without angina pectoris; I10 Essential (primary) hypertension; K21.9 Gastro-esophageal reflux disease without esophagitis; E11.9 Type 2 diabetes mellitus without complications; E78.5 Hyperlipidemia, unspecified; E66.01 Morbid (severe) obesity due to excess calories; Z68.42 Body mass index [BMI] 45.0-49.9, adult; F41.8 Other specified anxiety disorders
CPT/HCPCS: 25073; 64721; 36416; 82962; 88304; J0131; J1885; J2704; J2795; J3010; J3490; J7030; J9999

== ENCOUNTER → 2025-02-25 08:35 | Outpatient (BNVA) | payer MEDICARE, MEDICAID, SELFPAY | PROVIDERS: PCP Nurse Practitioner Family; Visit Provider Physician Assistant | DX: Z98.890 Other specified postprocedural states (principal) | CPT/HCPCS: 99024 ==

== ENCOUNTER → 2025-03-30 09:45 | Outpatient (BNVA) | payer MEDICARE, MEDICAID, SELFPAY | PROVIDERS: PCP Nurse Practitioner Family; Visit Provider Nurse Practitioner Family | DX: I10 Essential (primary) hypertension (principal); I48.0 Paroxysmal atrial fibrillation; E11.9 Type 2 diabetes mellitus without complications; R25.2 Cramp and spasm; E11.8 Type 2 diabetes mellitus with unspecified complications; E55.9 Vitamin D deficiency, unspecified | CPT/HCPCS: 80053; 80061; 82306; 82607; 83036; 83735; 84443; 85025 ==

== ENCOUNTER → 2025-04-07 10:56 | Outpatient (BNVA) | payer MEDICARE, MEDICAID, SELFPAY | PROVIDERS: PCP Nurse Practitioner Family; Visit Provider Nurse Practitioner Family | DX: L73.2 Hidradenitis suppurativa (principal); L21.8 Other seborrheic dermatitis; L72.0 Epidermal cyst; L73.8 Other specified follicular disorders; L82.1 Other seborrheic keratosis | CPT/HCPCS: 99214 ==